=== PATIENT | female | born 1975 | race Caucasian/White ===

== ENCOUNTER 2016-08-17 15:53 | Inpatient (IN) | payer BC, OTHER, SELFPAY ==
[~2016-08-17] VITALS: Ht 165.1 cm; Wt 92.3 kg
[2016-08-17] MEDS ORDERED: VITA100066 PO (16:10)
[2016-08-17] MEDS ORDERED: IBUPROFEN 400 MG TAB PO ONE (16:30)
[2016-08-17] MEDS ORDERED: NS 1,000 ML IV ONE ×3 (16:30→19:45)
[2016-08-17 17:16] LABS: BASO % 0.1 % (0.0-1.0); EOS # 0.1 K/mm3 (0.0-0.50); EOS % 0.6 % (0.0-3.0); LARGE UNSTAINED CELL # 0.2 K/mm3 (0.0-0.4); LYMPH # 1.3 K/mm3 (1.5-4.5); LYMPH % 8.2 % (24.0-44.0); MEAN CORPUSCULAR HEMOGLOBIN 29.9 pg (27.0-33.0); MEAN CORPUSCULAR HGB CONC 33.1 g/dl (32.0-36.5); MEAN CORPUSCULAR VOLUME 90.3 fl (80.0-96.0); MONO # 0.9 K/mm3 (0.0-0.8); MONO % 5.8 % (0.0-5.0); NEUTROPHILS # 13.2 K/mm3 (1.8-7.7); NEUTROPHILS % 84.3 % (36.0-66.0); PLATELET COUNT, AUTOMATED 304 k/mm3 (150-450); RED CELL DISTRIBUTION WIDTH 12.6 % (11.5-14.5); WHITE BLOOD COUNT 15.7 K/mm3 (4.0-10.0)
[2016-08-17] MEDS ORDERED: ACETAMINOPHEN TAB 650MG DOSE (2X325MG) PO ONE (18:00)
[2016-08-17] MEDS ORDERED: cefTRIAXone SOD 1 GM in D5W MINI-BAG PLUS 50 ML IV ONE (18:15)
[2016-08-17] MEDS ORDERED: IBUPROFEN 800 MG TAB PO ONE (18:15)
[2016-08-17 18:24] LABS: CONTROL LINE HCG INT CTR LINE PRESENT
[2016-08-17 18:31] LABS: ALBUMIN 3.4 GM/DL (3.2-5.2); ALKALINE PHOSPHATASE 74 U/L (45-117); ALT/SGPT 14 U/L (12-78); ANION GAP 8 MEQ/L (8-16); AST/SGOT 11 U/L (15-37); BILIRUBIN,DIRECT 0.2 MG/DL (0.0-0.2); BILIRUBIN,TOTAL 0.7 MG/DL (0.2-1.0); BLOOD UREA NITROGEN 14 MG/DL (7-18); CALCIUM LEVEL 8.3 MG/DL (8.5-10.1); CARBON DIOXIDE LEVEL 24 MEQ/L (21-32); CHLORIDE LEVEL 107 MEQ/L (98-107); CREATININE FOR GFR 0.77 MG/DL (0.55-1.02); GLOMERULAR FILTRATION RATE > 60.0 (>60); GLUCOSE, FASTING 92 MG/DL (70-105); POTASSIUM SERUM 4.1 MEQ/L (3.5-5.1); SODIUM LEVEL 139 MEQ/L (136-145); TOTAL PROTEIN 6.5 GM/DL (6.4-8.2)
--- NOTE | 2016-08-17 19:10 | REPUSA ---
CLINICAL HISTORY: Abdominal pain, UTI. TECHNIQUE: CT abdomen and pelvis without contrast. COMPARISON: No pertinent prior studies are available at this time. CT ABDOMEN WITHOUT CONTRAST: Lung bases: No lung base infiltrate or effusion. Liver: No intrahepatic ductal dilation. Gallbladder: Normally distended. Pancreas: No pancreatic duct dilation. Bowel loops: Nondistended. Spleen: Normal size. Adrenals: Normal size. Right kidney: No stones or hydronephrosis. Left kidney: There is a large stone in the left renal hilum measuring 1.9 x 2.9 cm, which produces mi ld hydronephrosis. Aorta: Normal caliber. Peritoneum: No free air. Lumbar spine: Grade 1-2 anterolisthesis of L5 over S1 which appears to be due to severe degenerative disc and facet arthrosis, with early spondylolysis. CT PELVIS WITHOUT CONTRAST: Colon: Nondistended. Appendix: Normal appendix is seen. Bladder: Normally distended. Pelvic organs: there is a left fallopian tube clip in situ. There is a drop fallopian tube clip in th e posterior pelvis. No clip is seen at the expected location of the right fallopian tube.. Peritoneum: No fluid. Skeleton: No acute findings. IMPRESSION: 1. 2.6 cm left renal hilar stone which produces mild hydronephrosis. 2. Probable displacement of right fallopian tube sterilization clip. 3. 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
[2016-08-17] MEDS ORDERED: TYLE500T78 PO (19:58)
[2016-08-17] MEDS ORDERED: IBUPOTC PO (19:58)
[2016-08-17] MEDS ORDERED: MORPHINE 2 MG/ML 1ML SYRINGE IV PRN (20:45)
[2016-08-17] MEDS ORDERED: LevoFLOXacin IV 500 MG in APPROPRIATE DILUENT 1 EA IV SCH (20:45)
[2016-08-17] MEDS: LR 1,000 ML IV SCH (22:00)
--- NOTE | 2016-08-17 22:07 | HPE ---
DATE OF ADMISSION: 08/17/2016 PRIMARY CARE PROVIDER: Patient saw Dr. Jaxson Contreras a year ago. UROLOGIST: Meena Bravo MD CHIEF COMPLAINT: Chills, rigors, and back pain. HISTORY OF PRESENT ILLNESS: This is a 40-year-old female patient, generally healthy, with no significant past medical history, urinary tract infection (UTI) 3 months ago with hernandez sensitive Escherichia (E) coli, nephrolithiasis 10 years ago, presented last night with chills and rigors and back pain. Patient says that her urine is always cloudy. Denies any nausea or vomiting. Reported generalized weakness and feeling feverish. Temperature in the emergency room was 104.8. Denies any chest pain, pressure, or discomfort. At baseline healthy, able to walk a mile without any problems. Denies any nausea or vomiting. Reported some right-sided back and flank discomfort and abdominal right-sided discomfort as well, ranking pain as 5/10, no radiation. No exacerbating or relieving factor. CT scan was done showing 2.6 cm left renal hilar stone producing mild hydronephrosis. ALLERGIES: No known drug allergies. PAST MEDICAL HISTORY: 1. UTI. 2. Nephrolithiasis. 3. Hernandez sensitive E. coli. PAST SURGICAL HISTORY: section and tubal ligation. FAMILY HISTORY: Noncontributory. SOCIAL HISTORY: Patient does not smoke. Lives at home with family and drinks alcoholic beverages once a month. No illicit drug use. REVIEW OF SYSTEMS: 10-point review of systems negative except for those mentioned in history of present illness (HPI). HOME MEDICATIONS: - acetaminophen 1000 mg by mouth every 4 hours as needed - vitamin D 1000 units by mouth daily - ibuprofen 400 mg by mouth every 6 hours as needed PHYSICAL EXAMINATION: VITAL SIGNS: Maximum temperature (Tmax) 102.5 on documentation, heart rate ranging from 144-96, respirations 18, blood pressure 104/58, pulse oximetry 97% on room air. GENERAL: Patient alert and oriented times three, in no acute distress. HEENT: Normocephalic, atraumatic. PULMONARY: Bilaterally clear to auscultation. CARDIAC: Regular rate and rhythm, normal S1, S2. No murmurs detected. ABDOMEN: Soft, nontender, nondistended. Costovertebral angle (CVA), mild right-sided tenderness to palpation and manipulation. EXTREMITIES: No edema bilateral lower extremities. LABORATORY DATA: WBC 15.7, hemoglobin and hematocrit 13.8/41.8, platelets 304. Chemistry: Sodium 139, potassium 4.1, chloride 107, bicarbonate 24, BUN 14, creatinine 0.77. hCG negative. Urinalysis positive. ASSESSMENT AND PLAN: This is a 40-year-old female patient with underlying medical history of urinary tract infection (UTI) before and nephrolithiasis who presented with sepsis secondary to pyelonephritis and obstructive uropathy secondary to stone. 1. Sepsis secondary to pyelonephritis with left hilar stone producing mild hydronephrosis. No significant costovertebral angle (CVA) tenderness. Urology consulted. Patient is going for emergency surgery with urologist. Baseline MET greater than 4, generally healthy. Patient is currently medically optimized for emergency surgery. IV fluids, given 3 liters IV fluids, put on maintenance 200 mL of lactated Ringer's. Antibiotics, started on Rocephin. Patient had hernandez sensitive Escherichia (E) coli. Followup urology recommendations. Perioperative management as per urology. Outpatient followup with urology. Pain medication as prescribed. Nothing by mouth. 2. Deep venous thrombosis (DVT) prophylaxis. Heparin subcutaneous. DISPOSITION: Pending urology followup, procedures, clinical improvement.
[2016-08-17] MEDS ORDERED: CONRAY-60 60% 50ML VIAL (Q9961) As Ordered ONE (22:38)
[2016-08-17] MEDS ORDERED: LevoFLOXacin(LEVAQUIN)500 MG/100 ML BAG (J1956) As Ordered ONE (22:48)
[2016-08-17] MEDS ORDERED: MIDAZOLAM INJ 2 MG/2 ML VIAL (J2250) As Ordered ONE (23:09)
[2016-08-17] MEDS ORDERED: LIDOCAINE 2% INJ 100 MG/5 ML SDV (FOR ANES.) As Ordered ONE (23:09)
[2016-08-17] MEDS ORDERED: PROPOFOL 200 MG/20 ML VIAL As Ordered ONE ×2 (23:09→23:13)
[2016-08-17] MEDS ORDERED: fentaNYL 100 MCG/2 ML INJECTION (J3010) As Ordered ONE (23:09)
[2016-08-17] MEDS ORDERED: BELLADONNA ALKALOIDS/OPIUM SUPP As Ordered ONE (23:36)
[2016-08-17] MEDS ORDERED: BELLADONNA ALKALOIDS/OPIUM SUPP PR PRN (23:45)
[2016-08-17] MEDS ORDERED: ONDANSETRON 4MG/2ML VIAL (J2405) IV PRN (23:45)
[2016-08-17] MEDS ORDERED: PERCOCET 5MG/325MG TAB PO PRN (23:45)
[2016-08-17] MEDS ORDERED: LR 1,000 ML IV SCH (23:45)
[2016-08-18] VITALS (11 sets, daily range): BP systolic 91–138; BP diastolic 54–80
[2016-08-18] MEDS: LR 1,000 ML IV SCH ×3 (00:47→17:02)
[2016-08-18] MEDS: HEPARIN SOD (PORCINE) 5000 UNITS/ML VIAL SC SCH ×3 (00:58→20:39)
[2016-08-18] MEDS: SENOKOT S TAB PO SCH ×3 (00:58→20:39)
[2016-08-18] MEDS: PERCOCET 5MG/325MG TAB PO PRN ×3 (00:59→17:06)
[2016-08-18] MEDS: oxyBUTYnin 5 MG TAB PO PRN (01:04)
[2016-08-18] MEDS: ONDANSETRON 4MG/2ML VIAL (J2405) IV PRN (04:34)
[2016-08-18 06:57] LABS: WHITE BLOOD COUNT 13.2 K/mm3 (4.0-10.0)
[2016-08-18 06:59] LABS: ANION GAP 6 MEQ/L (8-16); BLOOD UREA NITROGEN 11 MG/DL (7-18); CALCIUM LEVEL 7.6 MG/DL (8.5-10.1); CARBON DIOXIDE LEVEL 25 MEQ/L (21-32); CHLORIDE LEVEL 111 MEQ/L (98-107); CREATININE FOR GFR 0.65 MG/DL (0.55-1.02); GLOMERULAR FILTRATION RATE > 60.0 (>60); GLUCOSE, FASTING 113 MG/DL (70-105); MAGNESIUM LEVEL 1.7 MG/DL (1.8-2.4); POTASSIUM SERUM 3.8 MEQ/L (3.5-5.1); SODIUM LEVEL 142 MEQ/L (136-145)
[2016-08-18 07:01] LABS: MEAN CORPUSCULAR HEMOGLOBIN 29.2 pg (27.0-33.0)
[2016-08-18 07:02] LABS: MEAN CORPUSCULAR HGB CONC 32.1 g/dl (32.0-36.5); RED CELL DISTRIBUTION WIDTH 12.8 % (11.5-14.5)
--- NOTE | 2016-08-18 08:49 | REP ---
REASON: Cough. FINDINGS: The technique utilized in obtaining the radiograph has magnified the cardiac silhouette and accentuated the interstitial markings. The superior mediastinal structures are midline. The cardiac silhouette is unremarkable in size, shape, and position. The diaphragmatic surfaces of the lungs are regular, and the costophrenic angles are clear. The pulmonary archuleta are clear. The imaged osseous structures are intact. IMPRESSION: There is no acute cardiopulmonary disease. Signed by Paul Mott DO 08/18/2016 08:51 A
--- NOTE | 2016-08-18 08:56 | REP ---
18 seconds of fluoroscopy time provided for left-sided retrograde pyelogram. Two images have been presented. There is opacification of the left renal collecting system and there is a double J stent catheter place, the proximal portion of which is in the renal pelvic region and the distal portion is not included on the radiograph. Signed by Paul Mott DO 08/18/2016 09:26 A
[2016-08-18] MEDS ORDERED: MAG SULF 1GM/100ML (MAG RUN) 1 GM in APPROPRIATE DILUENT 1 EA IV ONE (09:00)
[2016-08-18 10:20] LABS: RETIC HEMOGLOBIN CONTENT CHr 30.2 PG (24-36); RETICULOCYTE % ADVIA2120 1.2 % (0.5-1.5)
[2016-08-18 10:31] LABS: FERRITIN 86 NG/ML (8-252); PERCENT SATURATION 3.3 % (13.2-37.4); TOTAL IRON BINDING CAPACITY 213 UG/DL (250-450)
[2016-08-18] MEDS: PHENAZOPYRIDINE 100 MG TAB PO PRN ×2 (10:48→20:58)
--- NOTE | 2016-08-18 10:53 | IPNPDOC ---
Assessment/Plan Date Seen The patient was seen on 08/18/16. Patient Summary pt with 2.9cm left renal pelvic stone causing moderate hydronephrosis. admitted with Tmax of 103.8. UTI/Pylonephritis. she was taken to the OR and had stent placed. she defervesced nicely with 3 liters of fluid and the ceftriaxon. today she c/o of dysuria and is retaining 200cc. will put her on pyridium for the dysuria and low dose valium and flomax for the retention (possibly caused by pelvic floor dysfuntion) which may also be contributing to the pain with urination. She will need the UTI cleared first and then definitive treatment for the stone can be planned. she will likely need a percutanious nephrolithotomy. she is likley to be able to go home tomorrow and f/u with Dr Ott as outpt. Problems (1) Leukocytosis Status: Acute Response to Treatment: Improving Discussed With: Patient (2) Renal colic on left side Status: Acute Response to Treatment: Improving Discussed With: Patient (3) Hydronephrosis Status: Acute Response to Treatment: Improving Discussed With: Patient (4) Pyelonephritis Status: Acute Response to Treatment: Improving Discussed With: Patient Plan/VTE VTE Prophylaxis Ordered?: Yes Plan IVF: Continue Diet: Continue Current Activity: Encourage Ambulation Medications: Other Med: (add pyridium, valium and flomax) Diagnostics: Repeat Labs in AM Anticipated Discharge: Home Subjective Review oF Systems Chief Complaint The patient is a 40-year-old female admitted with a reason for visit of Hydronephrosis,Pyelonephritis. General: Reports: Normal Appetite, Denies: Fatigue, Malaise Constitutional: Denies: Chills, Fever, Malaise, Sweats, Weakness Pulmonary: Denies: Cough, Dyspnea Cardiovascular: Denies Chest Pain, Denies Palpitations Gastrointestinal: Reports: Abdominal Pain, Denies: Nausea, Vomiting Genitourinary: Reports: Dysuria, Frequency, Retention Musculoskeletal: Reports: Back Pain Objective Physical Examination General Exam: : Alert: Cooperative: Mild Distress Vital Signs/I&O Vital Signs Date Time Temp Pulse Resp B/P Pulse Ox O2 Delivery O2 Flow Rate FiO2 08/18/16 08:37 18 08/18/16 08:00 99.4 71 138/62 97 Room Air I&O- Last 24 Hours up to 6 AM 08/18/16 06:00 Intake Total 3640 ml Output Total 200 ml Balance 3440 ml Laboratory Data Labs 24H Laboratory Tests 2 08/17/16 16:52: White Blood Count 15.7H, Red Blood Count 4.62, Hemoglobin 13.8, Hematocrit 41.8 , Mean Corpuscular Volume 90.3, Mean Corpuscular Hemoglobin 29.9, Mean Corpuscular Hemoglobin Concent 33.1, Red Cell Distribution Width 12.6, Platelet Count 304, Neutrophils (%) (Auto) 84.3H, Lymphocytes (%) (Auto) 8.2L, Monocytes (%) (Auto) 5.8H, Eosinophils (%) (Auto) 0.6, Basophils (%) (Auto) 0.1, Neutrophils # (Auto) 13.2H, Lymphocytes # (Auto) 1.3L, Monocytes # (Auto) 0.9H, Eosinophils # (Auto) 0.1, Basophils # (Auto) 0.0, Lactic Acid Level 1.4, Large Unclassified Cells # 0.2, Large Unclassified Cells % 1.0, Urine Amorphous Sediment SMALLH, Urine Appearance CLOUDYH, Urine Color YELLOW, Urine pH 6.0, Urine Specific Campbell 1.017, Urine Protein 1+H, Urine Glucose (UA) NEGATIVE, Urine Ketones 1+H, Urine Urobilinogen 0.2, Urine Bilirubin NEGATIVE, Urine Leukocyte Esterase 3+H, Urine Bacteria (Auto) 1+H, Urine Blood 2+H, Urine Calcium Carbonate Cryst(Auto) , Urine Calcium Oxalate Cryst (Auto) , Urine Calcium Phosphate Sheila (Auto) , Urine Cellular Casts , Urine Cystine Crystals , Urine Granular Casts (Auto) , Urine Hyaline Casts (Auto) 0, Urine Leucine Crystals , Urine Mucus (Auto) SMALL, Urine Nitrite POSITIVE, Urine Oval Fat Bodies (Auto) , Urine RBC (Auto) 31H, Urine Renal Epithelial Cells , Urine Sperm (Auto) , Urine Squamous Epithelial Cells 0, Urine Transitional Epithelial Cells , Urine Trichomonas (Auto) , Urine Triple Phosphate Cryst (Auto) , Urine Tyrosine Crystals , Urine Uric Acid Crystals (Auto) , Urine WBC (Auto) TNTCH, Urine Waxy Casts (Auto) , Urine Yeast-Like Cells (Auto) 08/17/16 18:01: Aspartate Amino Transf (AST/SGOT) 11L, Alanine Aminotransferase (ALT/SGPT) 14, Alkaline Phosphatase 74, Total Bilirubin 0.7, Direct Bilirubin 0.2, Albumin 3.4 , Albumin/Globulin Ratio 1.10, Anion Gap 8, Calcium Level 8.3L, Glomerular Filtration Rate > 60.0, Human Chorionic Gonadotropin, Qual NEGATIVE, Total Protein 6.5 08/18/16 06:32: Anion Gap 6L, Calcium Level 7.6L, Glomerular Filtration Rate > 60.0, Blood Urea Nitrogen 11, Creatinine 0.65, Sodium Level 142, Potassium Level 3.8, Chloride Level 111H, Carbon Dioxide Level 25, Ferritin 86, Iron Level 7L, Magnesium Level 1.7L, Total Iron Binding Capacity 213L, Transferrin % Saturation 3.3L CBC/BMP Laboratory Tests 08/17/16 16:52 Red Blood Count 4.62, Mean Corpuscular Volume 90.3, Mean Corpuscular Hemoglobin 29.9, Mean Corpuscular Hemoglobin Concent 33.1, Red Cell Distribution Width 12.6 , Neutrophils (%) (Auto) 84.3 H, Lymphocytes (%) (Auto) 8.2 L, Monocytes (%) ( Auto) 5.8 H, Eosinophils (%) (Auto) 0.6, Basophils (%) (Auto) 0.1, Neutrophils # (Auto) 13.2 H, Lymphocytes # (Auto) 1.3 L, Monocytes # (Auto) 0.9 H, Eosinophils # (Auto) 0.1, Basophils # (Auto) 0.0 08/17/16 18:01 08/18/16 06:32 Red Blood Count 3.55 L, Mean Corpuscular Volume 91.0, Mean Corpuscular Hemoglobin 29.2, Mean Corpuscular Hemoglobin Concent 32.1, Red Cell Distribution Width 12.8, Calcium Level 7.6 L Microbiology Microbiology 08/17/16 Blood Culture, Received Pending 08/17/16 Blood Culture, Received Pending 08/17/16 Group A Streptococcus Screen (BOB), Received Pending 08/17/16 Influenza Virus Type A Antigen - Final, Complete 08/17/16 Influenza Virus Type B Antigen - Final, Complete 08/17/16 Urine Culture, Received Pending MARIA D ANN MD Aug 18, 2016 10:53
[2016-08-18] MEDS: ACETAMINOPHEN TAB 650MG DOSE (2X325MG) PO PRN ×2 (12:04→17:06)
[2016-08-18] MEDS ORDERED: diazePAM 2 MG TAB PO ONE (13:00)
[2016-08-18] MEDS ORDERED: TAMSULOSIN 0.4 MG CAP PO ONE (13:30)
--- NOTE | 2016-08-18 15:57 | ECGEPIP ---
Stationary ECG Study [facility] Test Date: 2016-08-17 Pat Name: YRIS KEITA Department: Room: [place] [address] Gender: F Bottom Polisher: : 1975 Requested By: BHARAT CHOI Order Number: [id number] Reading MD: Ez Jameson Measurements Intervals [place] Rate: 106 P: 51 WY: 162 QRS: 17 QRSD: 97 T: 18 QT: 339 QTc: 452 Interpretive Statements SINUS TACHYCARDIA Otherwise within normal limits. No prior ECG available for comparison at the time of interpretation. Electronically Signed On 08-18-2016 15:57:17 EDT by Ez Jameson
[2016-08-18] MEDS: TAMSULOSIN 0.4 MG CAP PO SCH (20:38)
[2016-08-18] MEDS: diazePAM 2 MG TAB PO SCH (20:39)
[2016-08-18] MEDS: cefTRIAXone SOD 2 GM in D5W MINI-BAG PLUS 50 ML IV SCH (20:39)
--- NOTE | 2016-08-18 22:10 | CR ---
DATE OF CONSULTATION: 08/17/2016 CHIEF COMPLAINT: 1. 2.9 cm left renal pelvic stone with hydronephrosis. 2. Sepsis with tachycardia and fever to 103.8. 3. Urinary tract infection (UTI) and pyelonephritis. 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 She did not take her temperature but knew she was hot and thought it was most likely because she had maybe some sun poisoning from her sunburn, but she had shaking chills to the point where it was painful. She then developed a headache and feeling bad all over and then bilateral back pain. She presented here to the emergency room where she was found to have infected urine, an elevated white count of 16, and then a CT urogram which showed an almost 3 cm stone at the ureteropelvic junction (UPJ) on the left causing hydronephrosis. Her maximum temperature (Tmax) was 103.8 and urology was asked to assist. PAST MEDICAL HISTORY: Significant for stones only which she has passed. PAST SURGICAL HISTORY: Tubal ligation and section. ALLERGIES: None. MEDICATIONS: - vitamin D SOCIAL HISTORY: She denies any tobacco or illicit drugs, but she does occasionally drink an alcoholic beverage. FAMILY HISTORY: Positive for stones in her father. REVIEW OF SYSTEMS: Positive for the fever, but unknown how high, chills and rigors, and headache, and back pain, but it tends to be bilateral. She denies any chest pain or shortness of breath, any hematochezia, hemoptysis, bloody emesis, headache, seizure, stroke, numbness or weakness in the extremities, nausea, vomiting, diarrhea or constipation. On examination, at the moment she appears stable. She is 100.7, pulse still in the 140s, blood pressure is stable. HEENT: Normocephalic, except for sunburned face. Neck supple without adenopathy. Cardiovascular: Tachycardic but no rubs, gallops, or murmurs. Lung archuleta are clear to auscultation. Abdomen: Soft, nontender, nondistended. There is no evidence of hepatosplenomegaly, palpable masses, or CVA tenderness. Extremities show no clubbing, cyanosis, or edema. LABORATORIES: White blood count is 15.7, hematocrit 41.8, her creatinine is 0.77. Her urinalysis is cloudy, 1+ protein, 1+ ketones, 2+ bloods, nitrite positive, 3+ leukocyte esterase, white blood cell count is too numerous to count, red blood cells 31, 1+ bacteria. Urine and blood culture is pending. IMAGING: CT scan showed a 2.9 cm left renal pelvic stone with hydronephrosis. ASSESSMENT: 2.9 cm obstructing left renal pelvic stone with pyelonephritis and sepsis. PLAN: She initially presented with a maximum temperature (Tmax) of 103.8, but since being given 3 liters of fluid and some antibiotics she is looking less toxic. Her temperature has come down. She notes she no longer has shaking chills and her vital signs are more stable, but we still need to take her to the operating room for cystoscopy and left stent placement. I have posted her and hopefully we will go in the next couple of hours. She will remain nothing by mouth until after the procedure. She understands that we need to treat the infection and un-obstruct her and then come back and take care of the stone definitively once the infection is cleared. She expressed understanding and wants to proceed.
[2016-08-19 00:25] VITALS: BP 109/67
[2016-08-19] MEDS: ACETAMINOPHEN TAB 650MG DOSE (2X325MG) PO PRN ×3 (00:25→16:20)
[2016-08-19] MEDS: PERCOCET 5MG/325MG TAB PO PRN ×3 (00:26→21:14)
[2016-08-19] MEDS: LR 1,000 ML IV SCH ×3 (01:04→14:25)
[2016-08-19 04:00] VITALS: BP 107/54
[2016-08-19] MEDS: PHENAZOPYRIDINE 100 MG TAB PO PRN ×2 (05:44→14:11)
[2016-08-19] MEDS: ONDANSETRON 4MG/2ML VIAL (J2405) IV PRN (06:45)
[2016-08-19 07:27] LABS: MEAN CORPUSCULAR HEMOGLOBIN 29.5 pg (27.0-33.0); MEAN CORPUSCULAR HGB CONC 32.4 g/dl (32.0-36.5); MEAN CORPUSCULAR VOLUME 91.3 fl (80.0-96.0); RED CELL DISTRIBUTION WIDTH 12.8 % (11.5-14.5); WHITE BLOOD COUNT 9.8 K/mm3 (4.0-10.0)
[2016-08-19 08:00] VITALS: BP 121/72
[2016-08-19 08:00] LABS: ANION GAP 5 MEQ/L (8-16); BLOOD UREA NITROGEN 7 MG/DL (7-18); CARBON DIOXIDE LEVEL 29 MEQ/L (21-32); CHLORIDE LEVEL 109 MEQ/L (98-107); CREATININE FOR GFR 0.64 MG/DL (0.55-1.02); GLOMERULAR FILTRATION RATE > 60.0 (>60); GLUCOSE, FASTING 90 MG/DL (70-105); POTASSIUM SERUM 3.7 MEQ/L (3.5-5.1); SODIUM LEVEL 143 MEQ/L (136-145)
[2016-08-19] MEDS: HEPARIN SOD (PORCINE) 5000 UNITS/ML VIAL SC SCH ×2 (08:17→21:15)
[2016-08-19] MEDS: SENOKOT S TAB PO SCH ×2 (08:17→21:14)
--- NOTE | 2016-08-19 09:33 | IPN ---
DATE: 08/18/2016 Ms. Barnes is complaining of dysuria this morning which feels like she is urinating glass. She says she is frightened to urinate. She has been using the suppository made available to her as well as the Ditropan. She has not felt a fever or chills. She still has some discomfort in her back on the left but feels much better in that regard since yesterday. Temperature is 99.4, pulse 71, respiratory rate 18, blood pressure 138/62, 97% on room air. Intake and output notable for a positive fluid balance of 3400. Weight is 87.9 kg with a body mass index of 32.3. She is awake, appropriately interactive, pleasantly conversant and a good historian. Mucous membranes are tacky. Neck is supple. Breathing is symmetrical, rested. I:E ratio is 1:3, somewhat diminished in both bases. No wheezes, rales, or rhonchi. No accessory muscle use. Speaking in complete sentences. Distal pulses 2+, capillary refill is less than two seconds. Heart is in a regular rate and rhythm, is not tachycardic. No lower extremity edema. No sacral edema. No left-sided costovertebral angle (CVA) tenderness. Abdomen is soft, doughy with normoactive bowel sounds. LABORATORY DATA: White cell count 13.2, hemoglobin 10.4, and platelets of 234. BUN 11, creatinine 0.65, and magnesium is 1.7. ASSESSMENT: This is a 40-year-old with left-sided pyelonephritis status post stent placement for obstructive uropathy on the left. PLAN: 1. Infectious disease. The patient was treated for sepsis secondary to pyelonephritis with left hilar stone producing a mild hydronephrosis. The patient is on broad-spectrum antibiotics. We will await culture results. We will plan to keep the patient in the hospital until she is afebrile for 48 hours. 2. Obstructive uropathy. The patient is having relatively extreme dysuria. I have discussed the case in general with the covering urologist who is suggesting apart from medicines previously ordered, the addition of Pyridium which has been added as well. 3. The patient's primary care provider is Dr. Contreras, and although she has not followed up the him closely, she will be able to followup with him as an outpatient. 4. The patient has anemia. We will check iron studies as well as reticulocyte count. 5. The patient has hypomagnesemia which will be repleted.
[2016-08-19 12:00] VITALS: BP 120/69
--- NOTE | 2016-08-19 12:20 | RO ---
DATE OF PROCEDURE: 08/17/2016 PREPROCEDURE DIAGNOSIS: 2.9 cm left renal pelvic stone with pyelonephritis and hydronephrosis and sepsis. POSTPROCEDURE DIAGNOSIS: 2.9 cm left renal pelvic stone with pyelonephritis and hydronephrosis and sepsis. PROCEDURE: Cystoscopy, left retrograde pyelography, left ureteral stent placement. SURGEON: Dr. Meena Bravo REGIONAL OPERATIONS MANAGER: ANESTHESIA: Monitored anesthesia care. ESTIMATED BLOOD LOSS: OPERATIVE PROCEDURE: Proper patient was identified and informed consent obtained. Risks and benefits explained. Patient was then taken to the operative suite and laid in supine position. Monitored anesthesia care was administered. Once adequate anesthesia was obtained, she was prepped and draped in the usual sterile fashion in the dorsal lithotomy position. We initiated the procedure by advancing a #22-Bulgarian cystoscope with obturator into the bladder and draining the bladder of all urine. We then inspected the bladder with 30-degree lens. There were no abnormalities noted with the bladder and both ureteral orifices were normal in position and orientation. We cannulated the left ureteral orifice with a cone-tip catheter. We could easily see the very large stone in the renal pelvis on weed burner film. We then injected contrast to opacify the ureter and the calices beyond the stone. Contrast effluxed up past the stone to fill up the calices. We then passed a subsequent wire into the ureter and up over the stone into the upper pole. We then passed a #5-Bulgarian JJ multi-lens stent over the wire. We confirmed its placement fluoroscopically in the upper pole of the kidney and under direct vision in the bladder. At this point, we drained the bladder and terminated the procedure. The patient was awakened, to the postoperative anesthesia care in stable condition. DISPOSITION: She will be admitted to the hospitalist service and monitored for sepsis and when she defervesces, we will arrange for discharge and outpatient followup for definitive treatment of stone once her urinary tract infection has cleared.
[2016-08-19] MEDS: oxyBUTYnin 5 MG TAB PO PRN (14:11)
[2016-08-19] MEDS ORDERED: SLF 3 ML SYR IV PRN (15:00)
[2016-08-19] MEDS: FERROUS SULFATE 325MG TAB PO SCH (15:15)
[2016-08-19 16:00] VITALS: BP 117/70
--- NOTE | 2016-08-19 20:49 | IPN ---
DATE: 08/19/2016 Ms. Barnes is feeling somewhat better today, although she had quite a high fever yesterday afternoon, feeling slightly better now. Tolerating diet. Maximal temperature 103.7, current temperature at my evaluation 99.7, pulse 87, respirations 18, blood pressure 121/72, 96% on room air. Intake and output notable for a positive fluid balance of 515. One bowel movement noted today. Body mass index 34.3. She is awake, appropriately interactive, pleasantly conversant. Skin is flushed red, which I previously noted but did not dictate. Breathing is symmetrical and rested. Heart is in a regular rate and rhythm. The abdomen is soft, doughy, nontender. There is no costovertebral angle (CVA) tenderness. White cell count 9.8, hemoglobin 9.8, trending downward, and platelets of 242. BUN 7, creatinine 0.64, magnesium 2. Iron 7, TIBC 213, ferritin 86, reticulocyte count is 1.2. Stool for occult blood is negative. Urine as previously noted, did show 2+ blood. ASSESSMENT: This is a 40-year-old with left-sided pyelonephritis status post stent placement for obstructive uropathy on the same side. PLAN: 1. Infectious disease. Patient was treated for sepsis secondary to pyelonephritis with left sided stone, producing a mild hydronephrosis. The patient is continued on broad-spectrum antibiotics. Urine cultures are thus far negative. My plan would be to keep the patient in hospital until she is afebrile for approximately 48 hours. 2. Obstructive uropathy. Patient's extreme dysuria has resolved. According to progress note from urologist yesterday, patient is to have followup with Dr. Zarate upon discharge. 3. The patient's primary care provider is Dr. Contreras. 4. Patient has anemia. Iron studies suggest a poor reticulocyte count. In response to anemia, her anemia, of course, at this point may be dilutional. It would look as though she may have early iron deficiency or anemia of chronic disease. We will start her on iron supplement, and it would seem as though we can likely discontinue the intravenous (IV) fluids. 5. I have encouraged the patient to walk in the hallway three times a day.
[2016-08-19] MEDS: TAMSULOSIN 0.4 MG CAP PO SCH (21:14)
[2016-08-19] MEDS: diazePAM 2 MG TAB PO SCH (21:14)
[2016-08-19] MEDS: cefTRIAXone SOD 2 GM in D5W MINI-BAG PLUS 50 ML IV SCH (21:15)
[2016-08-19] MEDS: SLF 3 ML SYR IV SCH (21:15)
[2016-08-19 22:32] VITALS: BP 119/76
[2016-08-20 04:00] VITALS: BP 118/71
[2016-08-20] MEDS: ONDANSETRON 4MG/2ML VIAL (J2405) IV PRN (04:19)
[2016-08-20] MEDS: ACETAMINOPHEN TAB 650MG DOSE (2X325MG) PO PRN (04:19)
[2016-08-20] MEDS: SLF 3 ML SYR IV SCH ×3 (04:20→20:56)
[2016-08-20 07:22] LABS: MEAN CORPUSCULAR HEMOGLOBIN 29.4 pg (27.0-33.0); MEAN CORPUSCULAR HGB CONC 32.4 g/dl (32.0-36.5); MEAN CORPUSCULAR VOLUME 90.8 fl (80.0-96.0); RED CELL DISTRIBUTION WIDTH 12.7 % (11.5-14.5); WHITE BLOOD COUNT 8.1 K/mm3 (4.0-10.0)
[2016-08-20 07:33] LABS: REASON FOR REVIEW COMPREHENSIVE REVIEW
[2016-08-20 07:43] LABS: ANION GAP 6 MEQ/L (8-16); BLOOD UREA NITROGEN 7 MG/DL (7-18); CALCIUM LEVEL 7.9 MG/DL (8.5-10.1); CARBON DIOXIDE LEVEL 28 MEQ/L (21-32); CHLORIDE LEVEL 110 MEQ/L (98-107); CREATININE FOR GFR 0.61 MG/DL (0.55-1.02); GLOMERULAR FILTRATION RATE > 60.0 (>60); GLUCOSE, FASTING 99 MG/DL (70-105); MAGNESIUM LEVEL 1.9 MG/DL (1.8-2.4); POTASSIUM SERUM 4.2 MEQ/L (3.5-5.1); SODIUM LEVEL 144 MEQ/L (136-145)
[2016-08-20] MEDS ORDERED: KETOROLAC 30 MG/ML VIAL (J1885) IV PRN (07:45)
[2016-08-20] MEDS ORDERED: ACETAMINOPHEN 500 MG TAB PO PRN (07:45)
[2016-08-20 08:00] VITALS: BP 126/81
[2016-08-20] MEDS: FERROUS SULFATE 325MG TAB PO SCH (08:50)
[2016-08-20] MEDS: SENOKOT S TAB PO SCH ×2 (08:50→20:55)
[2016-08-20] MEDS: HEPARIN SOD (PORCINE) 5000 UNITS/ML VIAL SC SCH ×2 (08:51→20:56)
[2016-08-20] MEDS: oxyBUTYnin 5 MG TAB PO PRN ×2 (11:22→20:55)
[2016-08-20] MEDS: PHENAZOPYRIDINE 100 MG TAB PO PRN ×2 (11:22→22:11)
--- NOTE | 2016-08-20 11:49 | IPNPDOC ---
Subjective Date Seen The patient was seen on 08/20/16. Subjective Chief Complaint/HPI The patient is a 40-year-old female admitted with a reason for visit of Hydronephrosis,Pyelonephritis. Events since last encounter had low grade fever last night , having severe headache since early this morning , no abdominal pain no nausea or vomiting. Objective Physical Examination General Exam: Positive: Alert, No Acute Distress Eye Exam: Positive: Conjunctiva & lids normal, EOMI, PERRLA, Negative: Sclera icteric ENT Exam: Positive: Atraumatic, Mucous membr. moist/pink, Pharynx Normal Neck Exam: Positive: Supple, Negative: JVD, thyromegaly Chest Exam: Positive: Clear to auscultation, Normal air movement Heart Exam: Positive: Normal S1, Normal S2, Rate Normal, Regular Rhythm, Negative: Murmurs, Rubs Telemetry: Positive: No significant arrhythmia Extremity Exam: Positive: Normal pulses, Negative: Clubbing, Cyanosis, Edema Skin Exam: Positive: Nl turgor and temperature, Negative: Breakdown, Rash Assessment /Plan Problems (1) Pyelonephritis Status: Acute Problem Text: on ceftriaxone (2) Renal colic on left side Status: Resolved Problem Text: left renal pelvis stone 2.6 cm s/p left ureteral stent on 08/19 (3) Hydronephrosis Status: Resolved Problem Text: has left ureteral stent. Plan/VTE VTE Prophylaxis Ordered?: Yes Plan IVF: Continue Diet: Continue Current Activity: Encourage Ambulation Medications: Other Med: (add pyridium, valium and flomax) Diagnostics: Repeat Labs in AM Anticipated Discharge: Home VS, I&O, 24H, Regino Vital Signs/I&O Vital Signs Date Time Temp Pulse Resp B/P Pulse Ox O2 Delivery O2 Flow Rate FiO2 08/20/16 08:00 98.2 75 16 126/81 96 Room Air I&O- Last 24 Hours up to 6 AM 08/20/16 05:59 Intake Total 4340 ml Output Total 3330 ml Balance 1010 ml Laboratory Data 24H LABS Laboratory Tests 2 08/20/16 06:58: Anion Gap 6L, Blood Urea Nitrogen 7, Creatinine 0.61, Sodium Level 144, Potassium Level 4.2, Chloride Level 110H, Carbon Dioxide Level 28, Calcium Level 7.9L, Differential Pathologist's Review COMPREHENSIVE REVIEW, Differential Slide Review Report, Glomerular Filtration Rate > 60.0, Magnesium Level 1.9, Peripheral Blood Smear Path Consult PERIPHERAL SMEAR CBC/BMP Laboratory Tests 08/20/16 06:58 Calcium Level 7.9 L, Red Blood Count 3.38 L, Mean Corpuscular Volume 90.8, Mean Corpuscular Hemoglobin 29.4, Mean Corpuscular Hemoglobin Concent 32.4, Red Cell Distribution Width 12.7 Microbiology Microbiology 08/17/16 Blood Culture - Preliminary, Resulted No Growth after 48 hours. All Specime... 08/17/16 Blood Culture - Preliminary, Resulted No Growth after 48 hours. All Specime... 08/18/16 Stool Occult Blood (BOB) - Final, Complete 08/17/16 Group A Streptococcus Screen (BOB) - Final, Complete 08/17/16 Influenza Virus Type A Antigen - Final, Complete 08/17/16 Influenza Virus Type B Antigen - Final, Complete 08/17/16 Urine Culture - Final, Complete Escherichia Coli JAZMYNE PRINCE MD Aug 20, 2016 11:49
[2016-08-20 16:00] VITALS: BP 138/83
[2016-08-20 20:00] VITALS: BP 124/66
[2016-08-20] MEDS: diazePAM 2 MG TAB PO SCH (20:55)
[2016-08-20] MEDS: TAMSULOSIN 0.4 MG CAP PO SCH (20:55)
[2016-08-20] MEDS: cefTRIAXone SOD 2 GM in D5W MINI-BAG PLUS 50 ML IV SCH (20:56)
[2016-08-21] VITALS: BP 106/54
[2016-08-21] MEDS: SLF 3 ML SYR IV SCH (06:00)
[2016-08-21 07:32] LABS: MEAN CORPUSCULAR HGB CONC 31.7 g/dl (32.0-36.5); MEAN CORPUSCULAR VOLUME 91.3 fl (80.0-96.0); RED CELL DISTRIBUTION WIDTH 12.7 % (11.5-14.5); WHITE BLOOD COUNT 6.6 K/mm3 (4.0-10.0)
[2016-08-21 07:51] LABS: ANION GAP 4 MEQ/L (8-16); BLOOD UREA NITROGEN 12 MG/DL (7-18); CALCIUM LEVEL 8.4 MG/DL (8.5-10.1); CARBON DIOXIDE LEVEL 31 MEQ/L (21-32); CHLORIDE LEVEL 107 MEQ/L (98-107); CREATININE FOR GFR 0.56 MG/DL (0.55-1.02); GLOMERULAR FILTRATION RATE > 60.0 (>60); GLUCOSE, FASTING 92 MG/DL (70-105); MAGNESIUM LEVEL 2.2 MG/DL (1.8-2.4); POTASSIUM SERUM 4.2 MEQ/L (3.5-5.1); SODIUM LEVEL 142 MEQ/L (136-145)
[2016-08-21 08:00] VITALS: BP 123/80
[2016-08-21] MEDS: FERROUS SULFATE 325MG TAB PO SCH (09:46)
[2016-08-21] MEDS: SENOKOT S TAB PO SCH (09:46)
[2016-08-21] MEDS: HEPARIN SOD (PORCINE) 5000 UNITS/ML VIAL SC SCH (09:48)
[2016-08-21] MEDS ORDERED: FLOM5CAP PO (10:11)
[2016-08-21] MEDS ORDERED: LEVO500T32 PO (10:11)
[2016-08-21] MEDS ORDERED: OXYB5TA PO (10:15)
[2016-08-21] MEDS ORDERED: PHEN1TAB80 PO (10:15)
[2016-08-21] MEDS ORDERED: FERR325T PO (10:15)
[2016-08-21] MEDS ORDERED: LevoFLOXacin 500 MG TABLET PO ONE (11:00)
--- NOTE | 2016-08-22 07:38 | DSES ---
DATE OF ADMISSION: 08/17/2016 DATE OF DISCHARGE: 08/21/2016 PRIMARY CARE PROVIDER: Dusty Contreras. DISCHARGE DIAGNOSES: Sepsis secondary to urinary tract infection. Pyelonephritis with obstructive uropathy. Renal stone. Chronic anemia. DISCHARGE MEDICATIONS: - levofloxacin 500 mg by mouth daily - oxybutynin chloride 5 mg by mouth three times daily as needed spasms - phenazopyridine 100 mg tablet, 200 mg by mouth every 8 hours as needed dysuria - tamsulosin 0.4 mg by mouth at bedtime - ferrous sulfate 325 mg by mouth daily - Tylenol 1000 mg by mouth every 4 hours as needed pain - cholecalciferol 1000 units by mouth daily - ibuprofen 400 mg by mouth every 6 hours as needed pain HOSPITAL COURSE: This is a 40-year-old female who presented to the hospital with fever, chills and back pain. Patient had a CT scan in the emergency room which was found to have a 2.6 cm left renal hilar stone causing obstructive uropathy and with mild hydronephrosis and pyelonephritis. Patient was treated with ceftriaxone. Urine culture came back non-sensitive E. Coli. Patient was seen by urology and underwent left ureteral stent placement on 08/17/2016 for obstructive uropathy. Patient did well during hospitalization with resolution of her fever and chills. Patient was subsequently switched over to oral levofloxacin and discharged home in stable condition in baseline functional status. PHYSICAL EXAMINATION: Vital signs: Temperature 98.2, pulse 72, respiratory rate 18, blood pressure 123/80, pulse oximetry 97% on room air. General: Patient awake, alert, oriented times three. Sitting up in bed in no acute distress. HEENT: Normocephalic, atraumatic. Moist mucous membranes. Anicteric eyes. Chest: Clear to auscultation. Cardiovascular: S1, S2. Regular. No rub, murmur or gallop. Abdomen: Soft, nontender, bowel sounds present. Extremities: No edema. LABORATORY DATA: WBC 6.6, hemoglobin 10.3, platelets 324. Sodium 142, potassium 4.2, chloride 107, bicarbonate 31, BUN 12, creatinine 0.5. Glucose 92, calcium 8.4, magnesium 2.2. CT abdomen and pelvis showed 2.6 cm left renal hilar stone producing mild hydronephrosis. Probable displacement of right fallopian tube sterilization clip. 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 Chest x-ray: No acute pulmonary disease. DISPOSITION: Patient was discharged home in stable condition. DISCHARGE INSTRUCTIONS: Patient to followup with primary care provider in 2 weeks. Patient to followup with Dr. Zarate from urology in 1 week. Regular diet. Activity as tolerated.
[2016-08-25] MEDS ORDERED: IBUPROFEN 800 MG TAB PO PRN (16:00)
== END 2016-08-21 13:20 | disposition home or self-care (01) | DRG 720 ==
LOC: M ED 16:35 → M SDC 20:16 → M ED INP 20:38 → M PED 08-18 00:20
PROVIDERS: ADMIT Urology; ATTEND Internal Medicine Nephrology
PROC: 0T9740Z Drainage of Left Ureter with Drainage Device, Percutaneous Endoscopic Approach (ICD-10-PCS; principal; 2016-08-17 22:52)
DX: A41.9 Sepsis, unspecified organism (principal); N13.30 Unspecified hydronephrosis; N10 Acute pyelonephritis; N20.0 Calculus of kidney; N13.8 Other obstructive and reflux uropathy; D64.9 Anemia, unspecified; Z79.899 Other long term (current) drug therapy; B96.29 Other Escherichia coli [E. coli] as the cause of diseases classified elsewhere

== ENCOUNTER → 2016-09-02 | Outpatient (REF) | payer SELFPAY ==
[~2016-09-02] MED LIST: FERR325T PO; FLOM5CAP PO; IBUPOTC PO; LEVO500T32 PO; OXYB5TA PO; PHEN1TAB80 PO; TYLE500T78 PO; VITA100066 PO
== END ==
LOC: M SMT 11:01
PROVIDERS: ATTEND Nurse Practitioner Family
DX: N39.0 Urinary tract infection, site not specified (principal)

== ENCOUNTER 2016-09-05 16:00 | Inpatient (IN) | payer SELFPAY ==
[~2016-09-05] VITALS: Ht 162.6 cm; Wt 88.0 kg
[~2016-09-05 16:00] MED LIST changes: -BIOT7500 PO; -LEVA500T PO; -PERC5TAB6 PO; -PERCOCET PO
[2016-09-05] MEDS ORDERED: BIOT7500 PO (16:20)
[2016-09-05] MEDS ORDERED: PERC5TAB6 PO (16:20)
[2016-09-10] MEDS ORDERED: CONRAY-60 60% 50ML VIAL (Q9961) As Ordered ONE (07:26)
[2016-09-10] MEDS ORDERED: LR 1,000 ML IV ONE (08:00)
[2016-09-10] MEDS ORDERED: ceFAZolin 2 GM/D5W 50 ML IV BAG (J0690) As Ordered ONE (08:24)
[2016-09-10] MEDS ORDERED: MIDAZOLAM INJ 2 MG/2 ML VIAL (J2250) As Ordered ONE (09:32)
[2016-09-10] MEDS ORDERED: fentaNYL 250 MCG/5 ML INJECTION (J3010) As Ordered ONE (09:32)
[2016-09-10] MEDS ORDERED: PHENYLephrine HCL 500 MCG/5 ML (100MCG/ML) SYRINGE (J2370) As Ordered ONE ×2 (09:32→10:10)
[2016-09-10] MEDS ORDERED: PROPOFOL 500 MG/50 ML VIAL As Ordered ONE (09:32)
[2016-09-10] MEDS ORDERED: ROCURONIUM BROMIDE 50 MG/5 ML VIAL As Ordered ONE (10:07)
[2016-09-10] MEDS ORDERED: ePHEDrine SULFATE 25 MG/5 ML(5MG/ML) SYRINGE As Ordered ONE (10:08)
[2016-09-10] MEDS ORDERED: dexameTHASONE 4 MG/ML 1ML VIAL (J1100) As Ordered ONE (10:08)
[2016-09-10] MEDS ORDERED: ONDANSETRON 4MG/2ML VIAL (J2405) As Ordered ONE (10:08)
[2016-09-10] MEDS ORDERED: METOCLOPRAMIDE INJ 10MG/2ML VIAL (J2765) As Ordered ONE (10:09)
[2016-09-10] MEDS ORDERED: DESFLURANE 240 ML INHALANT As Ordered ONE (10:17)
[2016-09-10] MEDS ORDERED: GLYCOPYRROLATE INJ 0.2 MG/ML 2 ML VIAL As Ordered ONE (10:41)
[2016-09-10] MEDS ORDERED: NEOSTIGMINE 1MG/ML 5 ML SYRINGE (J2710) As Ordered ONE (10:41)
[2016-09-10] MEDS ORDERED: HYDROmorphone HCL 2 MG/ML 1ML VIAL (J1170) As Ordered ONE (11:19)
[2016-09-10] MEDS ORDERED: ONDANSETRON 4MG/2ML VIAL (J2405) IV PRN ×2 (11:45)
[2016-09-10] MEDS ORDERED: METOCLOPRAMIDE INJ 10MG/2ML VIAL (J2765) IV PRN (11:45)
[2016-09-10] MEDS ORDERED: oxyCODONE 5MG TAB PO PRN (11:45)
[2016-09-10] MEDS ORDERED: LR 1,000 ML IV SCH (11:45)
[2016-09-10] MEDS ORDERED: fentaNYL 100 MCG/2 ML INJECTION (J3010) IV PRN (11:45)
[2016-09-10] MEDS ORDERED: PERCOCET 5MG/325MG TAB PO PRN (11:45)
[2016-09-10] MEDS: MEPERIDINE INJ 25 MG/ML VIAL (J2175) IV PRN ×2 (12:05→12:16)
--- NOTE | 2016-09-10 12:35 | REP ---
C-ARM VIEWS DURING RETROGRADE PYELOGRAM AND TUBE PLACEMENT: Large stone is seen in the left renal pelvis. Stone appears to have been removed on image #5. Subsequent images show placement of a ureteral stent with the proximal end coiled in the region of the renal pelvis and the distal end coiled in the region of the urinary bladder. Fluoroscopy time 3 minutes 32 seconds. Signed by Buck Rivera MD 09/10/2016 04:08 P
[2016-09-10 13:15] VITALS: BP 118/67
[2016-09-10 13:45] VITALS: BP 115/67
[2016-09-10] MEDS: KETOROLAC 30 MG/ML VIAL (J1885) IV SCH ×2 (14:36→19:45)
[2016-09-10] MEDS: LevoFLOXacin 500 MG TABLET PO SCH (14:36)
[2016-09-10] MEDS: ACETAMINOPHEN TAB 650MG DOSE (2X325MG) PO SCH ×2 (14:36→21:58)
[2016-09-10] MEDS: KCL 20MEQ IN D5/0.45NS 1000ML 1,000 ML IV SCH ×2 (14:37→21:59)
[2016-09-10 14:45] VITALS: BP 108/64
[2016-09-10 15:27] LABS: MEAN CORPUSCULAR HEMOGLOBIN 30.4 pg (27.0-33.0); RED CELL DISTRIBUTION WIDTH 13.4 % (11.5-14.5); WHITE BLOOD COUNT 6.7 K/mm3 (4.0-10.0)
[2016-09-10 15:45] VITALS: BP 114/63
[2016-09-10 15:46] LABS: ANION GAP 7 MEQ/L (8-16); BLOOD UREA NITROGEN 13 MG/DL (7-18); CARBON DIOXIDE LEVEL 26 MEQ/L (21-32); CHLORIDE LEVEL 106 MEQ/L (98-107); CREATININE FOR GFR 0.71 MG/DL (0.55-1.02); GLOMERULAR FILTRATION RATE > 60.0 (>60); GLUCOSE, FASTING 115 MG/DL (70-105); SODIUM LEVEL 139 MEQ/L (136-145)
[2016-09-10 17:45] VITALS: BP 129/82
[2016-09-10] MEDS ORDERED: PANTOPRAZOLE 40MG INJ (PROTONIX) (C9113) IV SCH (18:00)
[2016-09-10 22:00] VITALS: BP 111/67
--- NOTE | 2016-09-11 01:15 | RO ---
DATE OF PROCEDURE: 09/10/2016 PREPROCEDURE DIAGNOSIS: Left renal pelvic stone. POSTPROCEDURE DIAGNOSIS: Left renal pelvic stone. PROCEDURE: Left percutaneous nephrolithotripsy plus antegrade double J stent placement, plus cystoscopy, plus removal of old left double J stent, #6-[place]osotho [place] Cook. SURGEON: Dr. Yusuf Zarate PROJECT MANAGEMENT CONSULTANT: None. ANESTHESIA: General. FINDINGS: 3 cm left renal pelvic stone and left hydronephrosis. COMPLICATIONS: None. ESTIMATED BLOOD LOSS: N/A. HISTORY OF THE PRESENT ILLNESS: This is a 41-year-old female patient who has a very large 3 cm stone in the left renal pelvis. She got a nephroureteral stent placed by interventional radiology. She has a double J stent that has slid into the mid ureter also when actually placing the left nephroureteral stent and all the way into the bladder. For this reason, she has consented for a left percutaneous nephrolithotripsy plus antegrade double J stent and possible cystoscopy plus removal of left double J stent, old one. DESCRIPTION OF PROCEDURE: In a patient under general anesthesia in prone position, after prepping and draping the area of concern, which included the left flank, we actually visualized the stone with fluoroscopy. We then cut the nephroureteral stent and passed a guidewire through it up to the bladder. We could notice that the old double J stent was in the mid ureter and going into the bladder in 80% of the length. For this reason, we actually took the nephroureteral stent out and placed a double-lumen catheter after incising the skin for 2 cm in length. Through the double-lumen catheter, we placed a second guidewire down to the bladder and then took the double lumen catheter out. Through one of the guidewires, we placed a balloon dilator device to actually dilate the nephrostomy tract up to #30 [place]. We then placed an Amplatz sheath through the balloon into the renal pelvis. We took the balloon out and then set up the nephroscope and under videoendoscopic guidance, we visualized a big large stone in the renal pelvis. At that moment in time, with a CyberWand, we actually did a nephrolithotripsy of the stone with ultrasonic CyberWand. We sucked all the pieces out and cleared the stone. There were no stones left in the kidney. At that moment in time, we took the nephroscope out and placed a ureteroscope. We went down the ureter with the ureteroscope and pushed the old double J stent into the bladder completely. Once the ureter was cleared of any stones, we placed back the flexible ureteroscope and did upper pole, mid pole and lower pole; there were no stones left. At that moment in time, we placed a new double J stent, #6-Mosotho, [place] Cook in an antegrade fashion through the guidewire up to the bladder. Once the stent was in the bladder, we took the guidewire out. We could see the curl in the kidney and the curl in the bladder. We then proceeded to take the Amplatz sheath and place a Mabank Tip catheter, #18-Mosotho, into the renal pelvis, following the second guidewire. Once it was in good position, we actually did a nephrostogram. There was no extravasation, and we took the guidewire out. We then proceeded to actually suture ligate the Mabank Tip to the skin with #3-0 silks times two and then placed the nephrostomy tube to gravity. The double J stent was in good position with a curl in the kidney and a curl in the bladder. The old stent was curled inside the bladder. For this reason, once we actually placed 4 x 4's and ABD pads around the nephrostomy tube and the nephrostomy tube was secured with stitches to the skin and placed to gravity, we positioned the patient in supine position and frog-legged her. With a flexible cystoscope, we went into the bladder and visualized the old stent and then, with the endoscopic grasper, we pulled it out of the body of the patient. We then proceeded to actually replace the Guo catheter, #16-Mosotho, and inflated the balloon to 10 mL. There were no complications.
[2016-09-11 02:00] VITALS: BP 110/54
[2016-09-11] MEDS: KETOROLAC 30 MG/ML VIAL (J1885) IV SCH ×2 (04:41→12:31)
[2016-09-11] MEDS: LevoFLOXacin 500 MG TABLET PO SCH (06:26)
[2016-09-11] MEDS: ACETAMINOPHEN TAB 650MG DOSE (2X325MG) PO SCH ×2 (06:27→14:00)
[2016-09-11] MEDS: KCL 20MEQ IN D5/0.45NS 1000ML 1,000 ML IV SCH (06:49)
[2016-09-11 07:02] LABS: MEAN CORPUSCULAR HEMOGLOBIN 30.3 pg (27.0-33.0); MEAN CORPUSCULAR HGB CONC 32.3 g/dl (32.0-36.5); MEAN CORPUSCULAR VOLUME 93.6 fl (80.0-96.0); RED CELL DISTRIBUTION WIDTH 13.6 % (11.5-14.5); WHITE BLOOD COUNT 8.6 K/mm3 (4.0-10.0)
[2016-09-11 07:22] LABS: ANION GAP 6 MEQ/L (8-16); BLOOD UREA NITROGEN 9 MG/DL (7-18); CARBON DIOXIDE LEVEL 27 MEQ/L (21-32); CHLORIDE LEVEL 108 MEQ/L (98-107); CREATININE FOR GFR 0.75 MG/DL (0.55-1.02); GLOMERULAR FILTRATION RATE > 60.0 (>60); GLUCOSE, FASTING 124 MG/DL (70-105); SODIUM LEVEL 141 MEQ/L (136-145)
[2016-09-11 08:00] VITALS: BP 134/74
[2016-09-11] MEDS ORDERED: LEVA500T PO (11:08)
[2016-09-11] MEDS ORDERED: PERCOCET PO (11:08)
--- NOTE | 2016-09-11 11:36 | REP ---
REASON: Postop. Stent placement. COMPARISON: 08/17/2016. The lung bases are unchanged. There are no pleural or pericardial effusions. Limited evaluation of the solid intra-abdominal organs and gallbladder show no changes. Limited evaluation of the pancreas and adrenal glands and right kidney show no changes. Since the past examination, the large calcification seen in the left renal pelvis has been extracted and in its stead, there is a trans renal percutaneous ureteral stent double J catheter placement, the proximal portion of which is in the region of the left renal pelvis and the distal portion of which is in the urinary bladder. No abnormal calcifications are seen adjacent to this stent. There is no evidence of abnormal fluid in Gerota's fascia or Zuckerkandl's fascia. Normal Postop changes are seen in the left renal fossa. The right kidney is unremarkable and unchanged. There is no evidence of free fluid or free air in the abdomen. The bowel loops are essentially unchanged. There is no evidence of change in the intrapelvic contents other than the aforementioned double J stent catheter. There are bilateral adnexal mass probably ovarian cysts and extremely difficult to evaluate on this non-oral bowel preparatory contrast enhanced exam and non-intravenous contrast enhanced exam. IMPRESSION: 1. Left sided double J stent catheter placement with resultant postoperative findings as described above. 2. Suspect bilateral pelvic cystic masses but extremely difficult to evaluate on this markedly limited exam as described above. I would recommend pelvic ultrasonography at this time for further evaluation or intravenous and oral bowel preparatory contrast enhanced examination. Signed by Paul Mott DO 09/11/2016 02:15 P
[2016-09-11 12:00] VITALS: BP 126/70
--- NOTE | 2016-09-12 11:48 | DSES ---
DATE OF ADMISSION: 09/10/2016 DATE OF DISCHARGE: 09/11/2016 ADMISSION DIAGNOSIS: Left renal pelvic stone. DISCHARGE DIAGNOSIS: Left renal pelvic stone. PROCEDURE PERFORMED: Left percutaneous nephrolithotripsy plus antegrade double J stent placement, plus cystoscopy, plus removal of old left double J stent, #6-[place] Cook. ADMITTING SURGEON: Dr. Yusuf Zarate. DISCHARGE SURGEON: Dr. Yusuf Zarate. COMPLICATIONS: None. HISTORY OF PRESENT ILLNESS: This is a 41-year-old female patient who has a very large 3 cm stone in the left renal pelvis. She got a nephroureteral stent placed by interventional radiology. She has a double J stent that has slid into the mid ureter and into the bladder completely. For this reason, she has consented for a left percutaneous nephrolithotripsy plus antegrade double J stent placement, plus possible cystoscopy, plus removal of the left double J stent, old one. HOSPITAL COURSE: The patient did very well. Surgery was performed on 09/10/2016 without any uneventful events. The patient was passed through recovery and then to the floor. She was tolerating a regular diet, ambulating very well. Guo was draining clear urine. The nephrostomy tube was draining clear urine also on postoperative day number one. For this reason, the patient requested to go home since she was tolerating pain with oral pain medication. Her Guo catheter was removed and she was placed into saline lock. She had a CT scan done in the morning of 09/11/2016 that shows that she is stone free. There is only a microscopic nephrolithiasis in the kidney in the mid pole of no concern, but everything is completely cleared off. For this reason, we have taken out the nephrostomy tube and placed a urostomy bag. She will followup at [facility] with the following indications: Levaquin 500 mg one tablet by mouth for 10 days, Percocet for pain as needed. No heavy weightlifting above [address] on the narcotics. Followup in 1-2 weeks for removal of the left double J stent in the clinic. She will go with the urostomy bag in the backside where the nephrostomy tube was. The patient has agreed on this and she will be discharged home today.
== END 2016-09-11 14:53 | disposition home or self-care (01) | DRG 443 ==
LOC: M OR 09-10 08:21 → M MS5PR 09-10 13:15 → M PED 09-10 23:00
PROVIDERS: ADMIT Urology; ATTEND Urology
PROC: 0T9140Z Drainage of Left Kidney with Drainage Device, Percutaneous Endoscopic Approach (ICD-10-PCS; principal; 2016-09-10 14:20)
DX: N20.0 Calculus of kidney (principal)

== ENCOUNTER → 2016-09-05 | Outpatient (CLI) | payer SELFPAY ==
[~2016-09-05] MED LIST changes: +BIOT7500 PO; +LEVA500T PO; +PERC5TAB6 PO; +PERCOCET PO
[2016-09-05 15:18] LABS: MEAN CORPUSCULAR HEMOGLOBIN 29.8 pg (27.0-33.0); MEAN CORPUSCULAR HGB CONC 31.9 g/dl (32.0-36.5); MEAN CORPUSCULAR VOLUME 93.5 fl (80.0-96.0); RED CELL DISTRIBUTION WIDTH 13.3 % (11.5-14.5); WHITE BLOOD COUNT 8.7 K/mm3 (4.0-10.0)
[2016-09-05 15:26] LABS: INR 0.99
[2016-09-05 15:45] LABS: ALBUMIN 3.6 GM/DL (3.2-5.2); ALBUMIN/GLOBULIN RATIO 1.09 (1.00-1.93); ALKALINE PHOSPHATASE 72 U/L (45-117); ALT/SGPT 18 U/L (12-78); ANION GAP 5 MEQ/L (8-16); AST/SGOT 11 U/L (15-37); BILIRUBIN,TOTAL 0.5 MG/DL (0.2-1.0); BLOOD UREA NITROGEN 16 MG/DL (7-18); CALCIUM LEVEL 9.2 MG/DL (8.5-10.1); CARBON DIOXIDE LEVEL 32 MEQ/L (21-32); CHLORIDE LEVEL 105 MEQ/L (98-107); CREATININE FOR GFR 0.73 MG/DL (0.55-1.02); GLOMERULAR FILTRATION RATE > 60.0 (>60); GLUCOSE, FASTING 89 MG/DL (70-105); POTASSIUM SERUM 4.5 MEQ/L (3.5-5.1); SODIUM LEVEL 142 MEQ/L (136-145); TOTAL PROTEIN 6.9 GM/DL (6.4-8.2)
== END ==
LOC: M LAB 14:47
PROVIDERS: ATTEND Nurse Practitioner Family
DX: Z01.818 Encounter for other preprocedural examination (principal); N20.0 Calculus of kidney

== ENCOUNTER → 2016-09-09 | Day surgery (SDC) | payer SELFPAY ==
[~2016-09-09] MED LIST changes: +BIOT7500 PO; +ISOVUE-300 61% 50ML VIAL (Q9967) As Ordered ONE; +LEVA500T PO; +LIDOCAINE 2% MDV 20 ML VIAL As Ordered ONE; +MIDAZOLAM INJ 2 MG/2 ML VIAL (J2250) As Ordered ONE; +NORCO, ANEXSIA 5/325MG TABLET (HYDROcodone/ACETAMINOPHEN) PO PRN; +PERC5TAB6 PO; +PERCOCET PO; +cefTRIAXone SOD 1 GM VIAL (J0696) As Ordered ONE; +cefTRIAXone SOD 1 GM in D5W MINI-BAG PLUS 50 ML IV ONE; +fentaNYL 100 MCG/2 ML INJECTION (J3010) As Ordered ONE; +oxyBUTYnin 5 MG TAB PO ONE
--- NOTE | 2016-09-09 15:08 | REPKIM ---
CLINICAL HISTORY: Patient with a history of staghorn calculus and pain involving the left kidney and hydronephrosis, s/p retrograde double J stent placement on 08/17/16 presents for a nephroureteral catheter (stent) placement for preop percutaneous nephrolithotripsy urology procedure on the left. PROCEDURE PERFORMED: 1. Ultrasound left Kidney 2. Percutaneous antegrade Nephrostogram 3. Percutaneous Nephroureteral catheter (stent) placement INTERVENTIONALIST: David Gibson MD CONSENT: The risks, benefits and alternatives to the procedure were explained to the patient and informed written consent was obtained. SEDATION: Sedation and analgesia was provided by the Anesthesiology Dept. MEDICATIONS: Rocephin 1gm IV, Local Lidocaine CONTRAST: 15 mL Isovue 300 EBL: less than 10 mL FLUORO TIME: 7.3 minutes DEVICE USED: 8.5F 45-cm pigtail; Nephroureteral catheter (stent) Lot#[id number] PROCEDURE/FINDINGS: The patient was brought to the interventional radiology suite and placed in the prone position, left flank prepped and draped in the usual sterile fashion. Time out procedure was performed. Ultrasound of the kidney showed a large staghorn calculus involving the renal pelvis. Minimally dilated calyces noted. Using ultrasound and fluoroscopy guidance, a 21-gauge Accustick needle was advanced into the targeted mid to lower pole posterior calyx, after infiltration of the skin and deep tissues with local anesthetic. Contrast was injected and images were obtained. This showed free antegrade flow of contrast into the urinary bladder. The preexisting double J internal ureteral stent is in a satisfactory course and position. Using a hydrophilic guidewire, the catheter-wire combination was advanced around the larger renal pelvis stone into the proximal ureter then into the urinary bladder. The wire was then exchanged for a stiff wire. An 8.5-Nigerian 45-cm length nephroureteral catheter ( stent) was introduced over the guidewire after serial dilation of its tract. The guidewire was withdrawn and the distal end of the loop formed in the bladder. The nephroureteral catheter was then flushed and capped. The pre- existing double J stent has migrated during NU insertion with most of the catheter coiled in the bladder. The patient tolerated the procedure well with no immediate complications. The patient was transferred to the recovery room. This procedure was performed using ultrasound and fluoroscopy. Dr. Gibson was present. IMPRESSION: 1. Staghorn calculus involving the left kidney. Nephrostogram demonstrates free antegrade flow of contrast into the urinary bladder. 2. Successful 8.5F nephroureteral catheter (stent) placement via the posterior mid to lower pole calyx with its tip positioned in the urinary bladder as discussed above. The pre-existing double J internal ureteral stent has migrated down with most of the catheter coiled in the bladder. Findings discussed via phone with Dr. Zarate. This NU access will be used for subsequent percutaneous nephrolithotripsy urology procedure on 09/10/16. cc: ALDO Diaz MD [facility] CENTERLeesa
[2016-09-09 15:25] VITALS: BP 125/81
== END | disposition home or self-care (01) ==
LOC: M IRPRO 11:58 → M SDC 15:18
PROVIDERS: ATTEND Nurse Practitioner Family
DX: N13.2 Hydronephrosis with renal and ureteral calculous obstruction (principal)
CPT/HCPCS: 50395; 74485; C1729; C1769; C1887; C1894; J0696; J2250; J3010; Q9967

== ENCOUNTER → 2016-10-02 | Outpatient (REF) | payer SELFPAY ==
[~2016-10-02] MED LIST changes: -ISOVUE-300 61% 50ML VIAL (Q9967) As Ordered ONE; -LIDOCAINE 2% MDV 20 ML VIAL As Ordered ONE; -MIDAZOLAM INJ 2 MG/2 ML VIAL (J2250) As Ordered ONE; -NORCO, ANEXSIA 5/325MG TABLET (HYDROcodone/ACETAMINOPHEN) PO PRN; -cefTRIAXone SOD 1 GM VIAL (J0696) As Ordered ONE; -cefTRIAXone SOD 1 GM in D5W MINI-BAG PLUS 50 ML IV ONE; -fentaNYL 100 MCG/2 ML INJECTION (J3010) As Ordered ONE; -oxyBUTYnin 5 MG TAB PO ONE
== END ==
LOC: M LAB REF 13:09
PROVIDERS: ATTEND Obstetrics & Gynecology
DX: Z12.4 Encounter for screening for malignant neoplasm of cervix (principal)

== ENCOUNTER → 2016-10-17 | Outpatient (CLI) | payer SELFPAY ==
--- NOTE | 2016-10-18 05:41 | REP ---
Clinical: Abnormal vaginal bleeding. Technique: Transabdominal pelvic ultrasound followed by transvaginal examination for better evaluation of the endometrium and adnexa with color Doppler evaluation of the ovaries. Findings: Bladder is unremarkable and measures 8.7 x 5.3 x 8.1 cm . Normal retroverted uterus measures 8.0 x 5.5 x 6.8 cm . The endometrial complex measures 13.8 mm thickness. No discrete uterine or endometrial abnormalities are appreciated. Bilateral ovaries are normal in appearance and vascularity without evidence for torsion. Right ovary measures 3.7 x 2.5 x 2.8 cm ; R I = 0.48. Left ovary measures 4.4 x 2.7 x 4.3 cm ; R I = 0.45. No pelvic fluid or adnexal abnormality appreciated. Tubal ligation clips cannot be evaluated or definitively identified by pelvic ultrasound. Based on correlation with CT dated 09/11/2016, and appears to be at the right Filsh[place] clip has fallen into the left anny pelvis and no longer occluding the right fallopian tube. Impression: 1. Essentially normal pelvic ultrasound. 2. Based on correlation with recent CT appears to be that the right Filshie clip has fallen into the left anny pelvis and no longer occludes the right fallopian tube. Signed by Artie Beltran MD 10/18/2016 05:33 A
== END ==
LOC: M RAD 17:18
PROVIDERS: ATTEND Obstetrics & Gynecology
DX: N93.9 Abnormal uterine and vaginal bleeding, unspecified (principal)

== ENCOUNTER 2016-12-27 06:04 | Day surgery (SDC) | payer OTHER ==
[~2016-12-27] VITALS: Ht 165.1 cm; Wt 88.0 kg
[~2016-12-27 06:04] MED LIST changes: +FERR1TAB8 PO; -FERR325T PO; +LEVA1TAB2 PO; -LEVA500T PO; +LEVO500T3 PO; -LEVO500T32 PO; +LR 1,000 ML IV SCH; -OXYB5TA PO; +OXYB5TAB10 PO; +PERC5TAB12 PO; -PERC5TAB6 PO; +PHEN-500 PO; -PHEN1TAB80 PO
[2016-12-27] MEDS ORDERED: LR 1,000 ML IV ONE (06:15)
[2016-12-27 06:38] LABS: MEAN CORPUSCULAR HEMOGLOBIN 29.9 pg (27.0-33.0); MEAN CORPUSCULAR VOLUME 90.4 fl (80.0-96.0); RED CELL DISTRIBUTION WIDTH 12.6 % (11.5-14.5); WHITE BLOOD COUNT 5.8 K/mm3 (4.0-10.0)
[2016-12-27 06:55] LABS: CONTROL LINE HCG INT CTR LINE PRESENT
[2016-12-27] MEDS ORDERED: fentaNYL 100 MCG/2 ML INJECTION (J3010) As Ordered ONE ×2 (07:05→08:04)
[2016-12-27] MEDS ORDERED: MIDAZOLAM INJ 2 MG/2 ML VIAL (J2250) As Ordered ONE (07:05)
[2016-12-27] MEDS ORDERED: dexameTHASONE 4 MG/ML 1ML VIAL (J1100) As Ordered ONE (07:06)
[2016-12-27] MEDS ORDERED: LIDOCAINE 2% INJ 100 MG/5 ML SDV (FOR ANES.) As Ordered ONE (07:06)
[2016-12-27] MEDS ORDERED: KETOROLAC 60 MG/2 ML VIAL (J1885) As Ordered ONE (07:06)
[2016-12-27] MEDS ORDERED: PROPOFOL 200 MG/20 ML VIAL As Ordered ONE (07:06)
[2016-12-27] MEDS ORDERED: ONDANSETRON 4MG/2ML VIAL (J2405) As Ordered ONE (07:06)
[2016-12-27] MEDS ORDERED: ROCURONIUM BROMIDE 50 MG/5 ML VIAL/SYRINGE As Ordered ONE (07:06)
[2016-12-27] MEDS ORDERED: SILVER NITRATE APPLICATOR As Ordered ONE (07:17)
[2016-12-27] MEDS ORDERED: BUPIVACAINE HCL 0.25% 10 ML VIAL As Ordered ONE (07:17)
[2016-12-27] MEDS ORDERED: ePHEDrine SULFATE 25 MG/5 ML(5MG/ML) SYRINGE As Ordered ONE (08:46)
[2016-12-27] MEDS ORDERED: GLYCOPYRROLATE INJ 0.2 MG/ML 2 ML VIAL As Ordered ONE (09:08)
[2016-12-27] MEDS ORDERED: NEOSTIGMINE 1MG/ML 5 ML SYRINGE (J2710) As Ordered ONE (09:08)
[2016-12-27] MEDS ORDERED: IBUP-1022 PO (09:22)
[2016-12-27] MEDS ORDERED: TRAM50TA2 PO (09:23)
[2016-12-27] MEDS ORDERED: COLA100C5 PO (09:24)
[2016-12-27] MEDS ORDERED: ONDANSETRON 4MG/2ML VIAL (J2405) IV PRN (09:30)
[2016-12-27] MEDS ORDERED: HYDROmorphone HCL 1 MG/ML SYRINGE (J1170) IV PRN (09:30)
[2016-12-27] MEDS ORDERED: PERCOCET 5MG/325MG TAB PO PRN (09:30)
[2016-12-27] MEDS ORDERED: fentaNYL 100 MCG/2 ML INJECTION (J3010) IV PRN (09:30)
[2016-12-27] MEDS ORDERED: LR 1,000 ML IV SCH ×2 (09:30)
[2016-12-27] MEDS ORDERED: METOCLOPRAMIDE INJ 10MG/2ML VIAL (J2765) IV ONE (12:30)
[2016-12-27 12:40] VITALS: BP 108/61
--- NOTE | 2016-12-28 12:06 | RO ---
DATE OF PROCEDURE: 12/27/2016 PREOPERATIVE DIAGNOSIS: Chronic pelvic pain. POSTPROCEDURE DIAGNOSIS: Chronic pelvic pain. PROCEDURE PERFORMED: Laparoscopic removal of Filshie clips and bilateral partial salpingectomy. SURGEON: Josue Rico DO PIPE RACKER: None. ANESTHESIA: General endotracheal. SPECIMENS TO PATHOLOGY: Two Filshie clips and bilateral partial fallopian tubes. ESTIMATED BLOOD LOSS: 10 mL. FLUIDS REPLACED: 1500 mL lactated Ringer's. DRAINS: Guo catheter 300 mL urine output. COMPLICATIONS: None. ANTIBIOTIC: None indicated. INTRAOPERATIVE FINDINGS: The right Filshie clip was found in the posterior cul-de-sac. The left Filshie clip was over the left proximal fallopian tube and mildly adherent to peritoneum. The uterus was retroverted, retroflexed, about 10 weeks in size. There were anterior adhesions attaching the bladder to the lower uterine segment and cervix, otherwise no significant intraperitoneal adhesive disease. INDICATION: The patient is a 41-year-old with a longstanding history of chronic pelvic pain. The chronic pelvic pain commenced immediately after she had the Filshie clips placed for sterilization. She continued to have chronic pelvic pain since that surgery and she has thus requested removal of the Filshie clips. She also requested bilateral partial salpingectomy/fimbriectomy for ovarian cancer risk reduction. The patient was counseled that her chronic pelvic pain has a chance of persisting despite the surgery. DESCRIPTION OF PROCEDURE: The patient was counseled and consented on the risks, benefits, indications and alternatives to the procedure. Informed consent was obtained. She was taken to operating room with an IV running. She was placed on operating table in dorsal supine position where general anesthesia was administered and airway secured without any difficulty. She was placed in low lithotomy position. She was prepared and draped in normal sterile fashion. A time-out was performed per protocol. Guo catheter was placed under sterile conditions. A sterile speculum placed into the vagina with good visualization of the cervix. A single-tooth tenaculum was placed over the anterior lip of the cervix and then a mydalaka uterine manipulator was placed in typical fashion. The sterile speculum was removed. Attention was turned to the abdomen after a glove switch was performed. A 5 mm umbilical incision was placed with 11 blade after injection of 0.25% Marcaine. Through this incision, a Veress needle was placed into the intraperitoneal cavity. Intraperitoneal placement was confirmed with ease of flow of normal saline, negative return on aspiration and a positive drop test. Opening pressure was 4 mmHg, and abdomen was insufflated with 2 liters of gas. Veress needle was removed. The size 5 mm XL laparoscopic trocar was placed under direct visualization without any difficulty and with no incidental bleeding or injury noted. The patient was then placed in steep Trendelenburg. Two additional 5 mm port sites were placed on the lower left abdomen through 5 mm incisions. The 5 mm XL laparoscopic trocars were placed under direct visualization. The pelvic anatomy was manipulated, the findings noted above. Attention was first turned to removing the left Filshie clip. The left Filshie clip was grasped with an atraumatic grasper and slight tension was placed, thus detaching it from its peritoneal attachments. It was easily removed through an 8 mm cannula. The 8 mm cannula was needed to replace one of the left 4 mm cannula prior to removal of Filshie clip to accommodate the Filshie clip. Attention was then turned to the posterior cul-de-sac. The posterior cul-de-sac Filshie clip was grasped with [place] graspers and detached with just placing tension over the clip. With blunt dissection, the clip was detached from its peritoneal attachments. The clip was removed through the 8 mm cannula, thus removing both Filshie clips. Attention was then turned to the left fallopian tube. The left fallopian tube was grasped at the fimbriated end and elevated. The underlying mesosalpinx and broad ligament were sequentially clamped, cut, coagulated with a 5 mm LigaSure device. The left fallopian tube was then amputated and brought through the 8 mm cannula. Attention was then turned to the right fallopian tube. The right fallopian tube was grasped at the fimbriated end and elevated. The underlying mesosalpinx and broad ligament was sequentially clamped, coagulated and transected with the 5 mm LigaSure device. The amputated right fallopian tube was brought through the 8 mm cannula. Excellent hemostasis was noted on both right and left surgical sites. The gas was released and after release of gas hemostasis was noted. The cannulas were removed. Sponge, lap, needle and instrument counts were correct. The skin incisions were closed with #4-0 Monocryl in subcuticular fashion and reinforced with Dermabond. Attention was then turned back to the pelvis. The Guo catheter was removed. Sterile speculum was placed. The tenaculum and the Hulka uterine manipulator were removed. The posterior tenaculum site of the Hulka uterine manipulator was bleeding significantly so a single interrupted stitch using #3-0 Vicryl was placed along this area. Excellent hemostasis was achieved. The remainder of the tenaculum sites were cauterized with silver nitrate and excellent hemostasis was noted. All instruments were removed from the vagina. Sponge, lap, needle and instrument counts were again correct. The patient tolerated the entire procedure well. She was transferred to the postanesthesia care unit in good stable condition.
== END 2016-12-27 12:50 | disposition home or self-care (01) ==
LOC: M SDC 06:04
PROVIDERS: ATTEND Obstetrics & Gynecology
DX: R10.2 Pelvic and perineal pain (principal); M54.5 Low back pain; F41.9 Anxiety disorder, unspecified; G47.00 Insomnia, unspecified

== ENCOUNTER → 2018-06-10 | Outpatient (REF) | payer BC, OTHER ==
[~2018-06-10] MED LIST changes: +COLA100C5 PO; +FLOM0.4C39 PO; -FLOM5CAP PO; +IBUP-1022 PO; -LR 1,000 ML IV SCH; +TRAM50TA2 PO
[2018-06-10 19:04] LABS: AMORPHOUS SEDIMENT MODERATE (NEGATIVE); APPEARANCE, URINE TURBID (CLEAR); BACTERIA, URINE AUTO 2+ (NEGATIVE); BILIRUBIN, URINE AUTO NEGATIVE (NEGATIVE); BLOOD, URINE BLOOD NEGATIVE (NEGATIVE); COLOR, URINE YELLOW (YELLOW); GLUCOSE, URINE (UA) AUTO NEGATIVE (NEGATIVE); KETONE, URINE AUTO NEGATIVE (NEGATIVE); LEUKOCYTE ESTERASE, URINE AUTO TRACE (NEGATIVE); MUCUS, URINE SMALL (NEGATIVE); NITRITE, URINE AUTO POSITIVE (NEGATIVE); PROTEIN, URINE AUTO NEGATIVE (NEGATIVE); RBC, URINE AUTO 0 /HPF (0-3); SPECIFIC GRAVITY URINE AUTO 1.027 (1.002-1.035); SQUAMOUS EPITHELIAL CELL UR AU 0 /HPF (0-6); UROBILINOGEN, URINE AUTO 0.2 mg/dL (0.0-2.0); WBC, URINE AUTO 16 /HPF (0-3)
== END ==
LOC: M SMT 17:10
PROVIDERS: ATTEND Nurse Practitioner Women's Health
DX: Z87.442 Personal history of urinary calculi (principal)

== ENCOUNTER → 2018-06-17 | Outpatient (CLI) | payer BC ==
--- NOTE | 2018-06-17 17:51 | REP ---
CT of the abdomen pelvis without IV and oral contrast: Comparison is 09/11/2016. The visualized lung archuleta are unremarkable. The unenhanced hepatic parenchyma, gallbladder, pancreas and spleen are unremarkable. The adrenals remarkable. There are no renal calculi. There is no hydronephrosis. No perinephric stranding. The kidneys appear normal size. The abdominal aorta is unremarkable. The bowel and mesentery are unremarkable. Pelvis: The uterus, adnexa and urinary bladder are unremarkable. There are phleboliths. The pelvic bowel loops are unremarkable. There is no ascites or adenopathy. Impression: There are no renal calculi. There is no hydronephrosis. Otherwise, negative CT of the abdomen and pelvis without IV and oral contrast. Electronically Signed by Buck Mcgee MD 06/17/2018 05:43 P
== END ==
LOC: M RAD 15:42
PROVIDERS: ATTEND Nurse Practitioner Women's Health
DX: N39.0 Urinary tract infection, site not specified (principal); Z87.442 Personal history of urinary calculi

== ENCOUNTER → 2018-06-24 | Outpatient (REF) | payer BC ==
[2018-06-24 19:00] LABS: APPEARANCE, URINE HAZY (CLEAR); BACTERIA, URINE AUTO 1+ (NEGATIVE); BILIRUBIN, URINE AUTO NEGATIVE (NEGATIVE); BLOOD, URINE BLOOD NEGATIVE (NEGATIVE); CALCIUM OXALATE CRYSTALS LARGE; COLOR, URINE YELLOW (YELLOW); GLUCOSE, URINE (UA) AUTO NEGATIVE (NEGATIVE); KETONE, URINE AUTO NEGATIVE (NEGATIVE); LEUKOCYTE ESTERASE, URINE AUTO NEGATIVE (NEGATIVE); MUCUS, URINE SMALL (NEGATIVE); NITRITE, URINE AUTO NEGATIVE (NEGATIVE); PROTEIN, URINE AUTO NEGATIVE (NEGATIVE); RBC, URINE AUTO 1 /HPF (0-3); SPECIFIC GRAVITY URINE AUTO 1.024 (1.002-1.035); SQUAMOUS EPITHELIAL CELL UR AU 1 /HPF (0-6); UROBILINOGEN, URINE AUTO 0.2 mg/dL (0.0-2.0); WBC, URINE AUTO 2 /HPF (0-3)
== END ==
LOC: M SMT 17:07
PROVIDERS: ATTEND Nurse Practitioner Women's Health
DX: N39.0 Urinary tract infection, site not specified (principal)

== ENCOUNTER → 2018-07-04 | Outpatient (CLI) | payer BC ==
[2018-07-04 19:19] LABS: BASO % 0.6 % (0.0-1.0); EOS # 0.2 10^3/uL (0.0-0.50); EOS % 2.4 % (0.0-3.0); HEMATOCRIT 39.1 % (36.0-47.0); HEMOGLOBIN 12.3 g/dl (12.0-15.5); LYMPH # 2.8 10^3/uL (1.5-4.5); LYMPH % 38.5 % (24.0-44.0); MEAN CORPUSCULAR HEMOGLOBIN 30.3 pg (27.0-33.0); MEAN CORPUSCULAR HGB CONC 31.5 g/dl (32.0-36.5); MEAN CORPUSCULAR VOLUME 96.3 fl (80.0-96.0); MONO # 0.4 10^3/uL (0.0-0.8); NEUTROPHILS # 3.8 10^3/uL (1.8-7.7); NEUTROPHILS % 52.4 % (36.0-66.0); PLATELET COUNT, AUTOMATED 330 10^3/uL (150-450); RED BLOOD COUNT 4.06 10^6/uL (4.00-5.40); WHITE BLOOD COUNT 7.2 10^3/uL (4.0-10.0)
[2018-07-04 19:39] LABS: BLOOD UREA NITROGEN 22 MG/DL (7-18); CALCIUM LEVEL 8.5 MG/DL (8.5-10.1); CARBON DIOXIDE LEVEL 28 MEQ/L (21-32); CHLORIDE LEVEL 107 MEQ/L (98-107); CHOLESTEROL LEVEL 158 MG/DL (<200); CREATININE FOR GFR 0.85 MG/DL (0.55-1.30); GLOMERULAR FILTRATION RATE > 60.0 (>58); GLUCOSE, FASTING 76 MG/DL (70-100); HDL CHOLESTEROL 81 MG/DL (>40); LDL CHOLESTEROL 71 MG/DL (<100); NON-HDL-C 77 MG/DL; POTASSIUM SERUM 4.4 MEQ/L (3.5-5.1); SODIUM LEVEL 141 MEQ/L (136-145); TRIGLYCERIDES LEVEL 31 MG/DL (<150)
== END ==
LOC: M LRY 09:37
PROVIDERS: ATTEND Family Medicine
DX: Z00.00 Encounter for general adult medical examination without abnormal findings (principal); R53.83 Other fatigue; F32.0 Major depressive disorder, single episode, mild; E66.9 Obesity, unspecified

== ENCOUNTER → 2018-07-17 | Outpatient (CLI) | payer BC ==
[2018-07-17 20:33] LABS: ALT/SGPT 20 U/L (12-78); BILIRUBIN,TOTAL 0.4 MG/DL (0.2-1.0); BLOOD UREA NITROGEN 16 MG/DL (7-18); CARBON DIOXIDE LEVEL 31 MEQ/L (21-32); CHLORIDE LEVEL 105 MEQ/L (98-107); CREATININE FOR GFR 0.79 MG/DL (0.55-1.30); GLOMERULAR FILTRATION RATE > 60.0 (>58); GLUCOSE, FASTING 71 MG/DL (70-100); POTASSIUM SERUM 4.7 MEQ/L (3.5-5.1); RHEUMATOID FACTOR QUANT < 10.0 IU/ML (<15.0); SODIUM LEVEL 140 MEQ/L (136-145); TOTAL PROTEIN 7.4 GM/DL (6.4-8.2)
[2018-07-17 20:36] LABS: VITAMIN B12 LEVEL 767 PG/ML
[2018-07-17 20:37] LABS: FOLATE 19.2 NG/ML
[2018-07-17 21:11] LABS: BASO # 0.1 10^3/uL (0.0-0.2); EOS # 0.2 10^3/uL (0.0-0.50); EOS % 1.9 % (0.0-3.0); HEMATOCRIT 38.7 % (36.0-47.0); HEMOGLOBIN 12.1 g/dl (12.0-15.5); LYMPH # 2.8 10^3/uL (1.5-4.5); LYMPH % 35.7 % (24.0-44.0); MEAN CORPUSCULAR HEMOGLOBIN 29.4 pg (27.0-33.0); MEAN CORPUSCULAR HGB CONC 31.3 g/dl (32.0-36.5); MEAN CORPUSCULAR VOLUME 94.2 fl (80.0-96.0); MONO # 0.6 10^3/uL (0.0-0.8); MONO % 8.2 % (0.0-5.0); NEUTROPHILS # 4.1 10^3/uL (1.8-7.7); NEUTROPHILS % 52.9 % (36.0-66.0); PLATELET COUNT, AUTOMATED 409 10^3/uL (150-450); RED BLOOD COUNT 4.11 10^6/uL (4.00-5.40); WHITE BLOOD COUNT 7.7 10^3/uL (4.0-10.0)
[2018-07-17 21:31] LABS: ERYTHROCYTE SEDIMENTATION RATE 9 mm/hr (0-20)
[2018-07-21 15:28] LABS: ALBUMIN % 58.1 % (55.8-66.1); ALPHA-1-GLOBULIN % 4.4 % (2.9-4.9); ALPHA-1-GLOBULINS 0.33 GM/DL (0.17-0.41); ALPHA-2-GLOBULINS 0.75 GM/DL (0.42-0.99); ALPHA-2-GLOBULINS % 10.1 % (7.1-11.8); BETA-1-GLOBULINS % 6.8 % (4.7-7.2); BETA-2-GLOBULINS 0.41 GM/DL (0.19-0.55); BETA-2-GLOBULINS % 5.5 % (3.2-6.5); GAMMA GLOBULIN % 15.1 % (11.1-18.8); GAMMA GLOBULINS 1.12 GM/DL (0.65-1.58)
[2018-07-22 08:27] LABS: ANTI DOUBLE STRAND-DNA AB <1 IU/mL (0-9); ANTINUCLEAR ANTIBODIES DIRECT Negative (Negative); COPPER PLASMA 122 ug/dL (72-166); LEAD BLOOD ADULT <1 ug/dL (0-4); MERCURY LEVEL None Detected ug/L (0.0-14.9); SJOGREN'S ANTI SS-A <0.2 AI (0.0-0.9); SJOGREN'S ANTI SS-B <0.2 AI (0.0-0.9)
[2018-07-22 15:14] LABS: CERULOPLASMIN 25.5 mg/dL (19.0-39.0); VITAMIN B1 LEVEL WHOLE BLOOD 120.1 nmol/L (66.5-200.0); VITAMIN B6,PYRIDOXAL PHOSPHATE 21.4 ug/L (2.0-32.8)
[2018-07-23 00:08] LABS: VITAMIN E(ALPHA TOCOPHEROL) 8.3 mg/L (7.0-25.1); VITAMIN E(GAMMA TOCOPHEROL) 1.7 mg/L (0.5-5.5)
== END ==
LOC: M LRY 17:16
PROVIDERS: ATTEND Psychiatry & Neurology Neurology
DX: R41.841 Cognitive communication deficit (principal)

== ENCOUNTER → 2019-06-24 | Outpatient (REF) | payer BC ==
[2019-06-24 17:49] LABS: INFLUENZA A AMPLIFICATION NEGATIVE (NEGATIVE); INFLUENZA B AMPLIFICATION POSITIVE (NEGATIVE)
== END ==
LOC: M LAB REF 16:34
PROVIDERS: ATTEND Registered Nurse
DX: R50.9 Fever, unspecified (principal)

== ENCOUNTER 2020-01-17 13:12 | Emergency (ER) | payer BC ==
[~2020-01-17] VITALS: Ht 165.1 cm; Wt 81.4 kg
[2020-01-17] MEDS ORDERED: METF-838 (13:24)
[2020-01-17] MEDS ORDERED: tylenol 1 gm (13:24)
[2020-01-17] MEDS ORDERED: VYVA60CA (13:24)
[2020-01-17] MEDS ORDERED: BUPR300T92 (13:24)
[2020-01-17] MEDS ORDERED: BUPR-69 (13:24)
[2020-01-17] MEDS ORDERED: NS 1,000 ML IV ONE (15:15)
[2020-01-17] MEDS ORDERED: ONDANSETRON 4MG/2ML VIAL IV ONE (15:15)
[2020-01-17] MEDS ORDERED: cefTRIAXone SOD 1 GM in D5W MINI-BAG PLUS 50 ML IV ONE (16:00)
[2020-01-17 16:39] LABS: BASO # 0.1 10^3/uL (0.0-0.2); BASO % 0.7 % (0.0-1.0); EOS # 0.1 10^3/uL (0.0-0.5); EOS % 1.2 % (0.0-3.0); HEMATOCRIT 38.4 % (36.0-47.0); HEMOGLOBIN 12.2 g/dl (12.0-15.5); LYMPH # 2.6 10^3/uL (1.5-5.0); LYMPH % 28.9 % (24.0-44.0); MEAN CORPUSCULAR HEMOGLOBIN 30.6 pg (27.0-33.0); MEAN CORPUSCULAR HGB CONC 31.8 g/dl (32.0-36.5); MEAN CORPUSCULAR VOLUME 96.2 fl (80.0-96.0); MONO # 0.7 10^3/uL (0.0-0.8); MONO % 7.5 % (0.0-5.0); NEUTROPHILS # 5.5 10^3/uL (1.5-8.5); NEUTROPHILS % 61.6 % (36.0-66.0); PLATELET COUNT, AUTOMATED 381 10^3/uL (150-450); RED BLOOD COUNT 3.99 10^6/uL (4.00-5.40); WHITE BLOOD COUNT 8.9 10^3/uL (4.0-10.0)
[2020-01-17 17:11] LABS: ALBUMIN 3.6 GM/DL (3.2-5.2); ALT/SGPT 21 U/L (12-78); BILIRUBIN,DIRECT 0.1 MG/DL (0.0-0.2); BILIRUBIN,TOTAL 0.5 MG/DL (0.2-1.0); BLOOD UREA NITROGEN 9 MG/DL (7-18); CARBON DIOXIDE LEVEL 27 MEQ/L (21-32); CHLORIDE LEVEL 107 MEQ/L (98-107); CREATININE FOR GFR 0.81 MG/DL (0.55-1.30); GLOMERULAR FILTRATION RATE > 60.0 (>58); GLUCOSE, FASTING 78 MG/DL (70-100); LIPASE 59 U/L (73-393); POTASSIUM SERUM 3.8 MEQ/L (3.5-5.1); SODIUM LEVEL 141 MEQ/L (136-145); TOTAL PROTEIN 6.8 GM/DL (6.4-8.2)
--- NOTE | 2020-01-17 17:36 | REPVR ---
PROCEDURE INFORMATION: Exam: CT Abdomen And Pelvis Without Contrast Exam date and time: 01/17/2020 5:21 PM Age: 44 years old Clinical indication: Other: L flank pain, febrile concern for stone obst or pyelonephrit TECHNIQUE: Imaging protocol: Computed tomography of the abdomen and pelvis without contrast. Radiation optimization: All CT scans at this facility use at least one of these dose optimization techniques: automated exposure control; mA and/or kV adjustment per patient size (includes targeted exams where dose is matched to clinical indication); or iterative reconstruction. COMPARISON: CT ABD PELVIS W/O CONTRAST 06/17/2018 4:15 PM FINDINGS: Liver: Normal. No mass. Gallbladder and bile ducts: Normal. No calcified stones. No ductal dilation. Pancreas: Normal. No ductal dilation. Spleen: Normal. No splenomegaly. Adrenals: Normal. No mass. Kidneys and ureters: Punctate nonobstructive calculus lower pole right kidney. No obstructive ureteral calculi demonstrated. Stomach and bowel: Unremarkable. No obstruction. No mucosal thickening. Appendix: No evidence of appendicitis. Intraperitoneal space: Unremarkable. No free air. No significant fluid collection. Vasculature: Unremarkable. No abdominal aortic aneurysm. Lymph nodes: Unremarkable. No enlarged lymph nodes. Bladder: Unremarkable as visualized. Reproductive: Unremarkable as visualized. Bones/joints: Moderate central spinal stenosis L3-L4 moderate to severe central spinal stenosis L4-L5. There is a grade 1 anterior spondylolisthesis of L5 on S1 secondary to bilateral L5 spondylolysis. Soft tissues: Unremarkable. IMPRESSION: 1. Moderate central spinal stenosis L3-L4 moderate to severe central spinal stenosis L4-L5. There is a grade 1 anterior spondylolisthesis of L5 on S1 secondary to bilateral L5 spondylolysis. 2. Punctate nonobstructive calculus lower pole right kidney. No obstructive ureteral calculi demonstrated. Electronically signed by: Edwin Oshea On 01/17/2020 17:35:54 PM
[2020-01-17] MEDS ORDERED: CIPR-249 PO (17:41)
[2020-01-17 17:46] VITALS: BP 130/80
== END 2020-01-17 17:54 | disposition home or self-care (01) ==
LOC: M ED 13:12
DX: N10 Acute pyelonephritis (principal); N20.0 Calculus of kidney; M48.061 Spinal stenosis, lumbar region without neurogenic claudication; M43.17 Spondylolisthesis, lumbosacral region; Z88.1 Allergy status to other antibiotic agents; Z88.2 Allergy status to sulfonamides; Z88.8 Allergy status to other drugs, medicaments and biological substances; Z79.899 Other long term (current) drug therapy; Z79.84 Long term (current) use of oral hypoglycemic drugs
CPT/HCPCS: 36415; 74176; 80048; 80076; 81001; 83605; 83690; 85025; 87040; 87088; 87186; 96365; 99284; J0696; J2405

== ENCOUNTER → 2020-02-17 | Outpatient (REF) | payer BC ==
[~2020-02-17] MED LIST changes: +BUPR-69; +BUPR300T92; +CIPR-249 PO; +METF-838; +VYVA60CA; +tylenol 1 gm
== END ==
LOC: M SMT 16:48
PROVIDERS: ATTEND Urology
DX: N39.0 Urinary tract infection, site not specified (principal); N20.0 Calculus of kidney; R35.0 Frequency of micturition; R39.82 Chronic bladder pain

== ENCOUNTER → 2020-03-14 | Outpatient (REF) | payer BC | LOC: M SMT 12:45 | PROVIDERS: ATTEND Urology | DX: N39.0 Urinary tract infection, site not specified (principal) ==

== ENCOUNTER 2020-06-08 10:48 | Emergency (ER) | payer BC ==
[~2020-06-08] VITALS: Ht 165.1 cm; Wt 80.1 kg
[2020-06-08 12:26] LABS: HEMATOCRIT 40.3 % (36.0-47.0); HEMOGLOBIN 12.8 g/dl (12.0-15.5); MEAN CORPUSCULAR HEMOGLOBIN 30.5 pg (27.0-33.0); MEAN CORPUSCULAR HGB CONC 31.8 g/dl (32.0-36.5); PLATELET COUNT, AUTOMATED 352 10^3/uL (150-450); WHITE BLOOD COUNT 8.3 10^3/uL (4.0-10.0)
[2020-06-08] MEDS ORDERED: NS 1,000 ML IV ONE (12:45)
[2020-06-08] MEDS ORDERED: ONDANSETRON 4MG/2ML VIAL IV ONE (12:45)
[2020-06-08 13:09] LABS: ALBUMIN 3.9 GM/DL (3.2-5.2); BILIRUBIN,DIRECT 0.2 MG/DL (0.0-0.2); BILIRUBIN,TOTAL 0.6 MG/DL (0.2-1.0); TOTAL PROTEIN 7.3 GM/DL (6.4-8.2)
--- NOTE | 2020-06-08 13:18 | REP ---
INDICATION: R flank pain, hematuria, h/o kidney stones COMPARISON: Comparison CT study January 17, 2020.. TECHNIQUE: Helical scanning is acquired in 4 mm axial images were reformatted. Coronal and sagittal MPR images were generated and reviewed. FINDINGS: Digital preliminary clinical pharmacologist radiograph is unremarkable. On axial CT images, the lung bases are clear. There is no evidence of pleural effusion or upper abdominal ascites. Liver and the spleen are normal in size homogeneous in texture. No abnormality is noted in the gallbladder or the pancreas. Normal adrenal glands are seen bilaterally. There is no evidence of intrarenal calculus or hydronephrosis on either side. No retroperitoneal mass or adenopathy is observed. A normal appendix is seen posterior to the cecum. The uterus is retroverted retroflexed. No ovarian mass or cyst is seen. Urinary bladder is unremarkable. On bone window settings, there is degenerative disc disease and osteoarthritic facet disease bilaterally at L5-S1. A degenerative grade 1 spondylolisthesis is seen at L5-S1 measuring 10 mm. This is unchanged. No bony destructive lesion is seen. No abdominal wall defect is observed. IMPRESSION: No urinary tract calculus or hydronephrosis seen. Normal appendix. No acute abdominal or pelvic abnormality. <Electronically signed by Terrence Fernandez > 06/08/20 [id number]
[2020-06-08] MEDS ORDERED: LEVO500T3 PO (13:56)
[2020-06-08 14:05] VITALS: BP 126/74
== END 2020-06-08 14:15 | disposition home or self-care (01) ==
LOC: M ED 10:48
DX: N39.0 Urinary tract infection, site not specified (principal); F41.9 Anxiety disorder, unspecified; Z88.1 Allergy status to other antibiotic agents; Z88.6 Allergy status to analgesic agent; Z88.8 Allergy status to other drugs, medicaments and biological substances; Z79.899 Other long term (current) drug therapy
CPT/HCPCS: 74176; 80047; 80076; 81001; 82150; 83690; 84702; 85027; 87088; 87186; 96361; 96374; 99284; J2405

== ENCOUNTER → 2021-03-02 | Outpatient (REF) | payer BC | LOC: M WUC 15:36 | PROVIDERS: ATTEND Physician Assistant | DX: R30.0 Dysuria (principal) ==

== ENCOUNTER → 2021-04-20 | Outpatient (CLI) | payer BC ==
[~2021-04-20] MED LIST changes: -LEVO500T3 PO; +LEVO500T4 PO
== END ==
LOC: M LABSMTC 13:23
PROVIDERS: ATTEND Pediatrics
DX: Z20.822 Contact with and (suspected) exposure to COVID-19 (principal)
CPT/HCPCS: C9803; U0003

== ENCOUNTER → 2022-01-10 | Outpatient (CLI) | payer BC ==
[~2022-01-10] MED LIST changes: +LEVO1TAB39 PO; -LEVO500T4 PO
== END ==
LOC: M WUC 09:13
PROVIDERS: ATTEND Physician Assistant
DX: S63.502A Unspecified sprain of left wrist, initial encounter (principal); M79.642 Pain in left hand; X58.XXXA Exposure to other specified factors, initial encounter; Y92.9 Unspecified place or not applicable

== ENCOUNTER 2022-07-04 09:45 | Inpatient (IN) | payer BC ==
[~2022-07-04] VITALS: Ht 165.1 cm; Wt 83.6 kg
[~2022-07-04 09:45] MED LIST changes: -BUPR-69; +BUPR-69 PO; -BUPR300T92; +BUPR300T92 PO; -METF-838; +METF-838 PO; -VYVA60CA; +VYVA60CA PO
[2022-07-04] MEDS ORDERED: GABA-1171 (11:20)
[2022-07-04] MEDS ORDERED: ONDA8TAB8 SL (11:20)
[2022-07-04] MEDS ORDERED: BIOT10009 PO (11:21)
[2022-07-04] MEDS ORDERED: LORazepam 2 MG TAB PO PRN (12:15)
[2022-07-04] MEDS ORDERED: LORazepam 2 MG/ML 1ML VIAL IV STA (12:20)
[2022-07-04 12:24] LABS: HEMATOCRIT 42.3 % (36.0-47.0); HEMOGLOBIN 13.8 g/dl (12.0-15.5); MEAN CORPUSCULAR HEMOGLOBIN 31.1 pg (27.0-33.0); MEAN CORPUSCULAR HGB CONC 32.6 g/dl (32.0-36.5); MEAN CORPUSCULAR VOLUME 95.3 fl (80.0-96.0); PLATELET COUNT, AUTOMATED 465 10^3/uL (150-450); RED BLOOD COUNT 4.44 10^6/uL (4.00-5.40); WHITE BLOOD COUNT 9.4 10^3/uL (4.0-10.0)
[2022-07-04] MEDS: THIAMINE 100 MG TAB PO SCH ×2 (12:27→19:58)
[2022-07-04] MEDS: MULTIVITAMINS/MINERALS THERAP 1 TAB PO SCH (12:27)
[2022-07-04 12:53] LABS: AMPHETAMINES LEVEL URINE NEGATIVE (NEGATIVE); BARBITURATES URINE NEGATIVE (NEGATIVE); BENZODIAZEPINES URINE NEGATIVE (NEGATIVE); CANNABINOIDS URINE NEGATIVE (NEGATIVE); COCAINE METABOLITE URINE NEGATIVE (NEGATIVE); ETHYL ALCOHOL (ETHANOL) 0.005 % (0.000-0.010); METHADONE URINE NEGATIVE (NEGATIVE); OPIATES URINE NEGATIVE (NEGATIVE); PHENCYCLIDINE URINE NEGATIVE (NEGATIVE)
[2022-07-04 12:55] LABS: ACETAMINOPHEN LEVEL < 2.0 UG/ML (10.0-20.0); SALICYLATE LEVEL < 3.0 MG/DL (<30)
[2022-07-04 13:02] LABS: ALBUMIN 3.9 G/DL (3.2-5.2); ALKALINE PHOSPHATASE 86 U/L (46-116); ALT/SGPT 23 U/L (7.0-40); AST/SGOT 18 U/L (<34); BILIRUBIN,DIRECT 0.2 MG/DL (<0.4); BILIRUBIN,TOTAL 0.8 MG/DL (0.3-1.2); BLOOD UREA NITROGEN 12 MG/DL (9-23); CALCIUM LEVEL 9.6 MG/DL (8.5-10.1); CARBON DIOXIDE LEVEL 26 MMOL/L (20-31); CHLORIDE LEVEL 102 MMOL/L (98-107); CREATININE FOR GFR 0.95 MG/DL (0.55-1.30); GLOMERULAR FILTRATION RATE > 60.0 (>58); GLUCOSE, FASTING 84 MG/DL (60-100); MAGNESIUM LEVEL 1.8 MG/DL (1.8-2.4); SODIUM LEVEL 137 MMOL/L (136-145); TOTAL PROTEIN 7.4 G/DL (5.7-8.2)
[2022-07-04 13:58] LABS: HCG, SERUM QUALITATIVE NEGATIVE (NEGATIVE)
[2022-07-04] MEDS ORDERED: ACETAMINOPHEN TAB 650MG DOSE (2X325MG) PO ONE (14:50)
[2022-07-04] MEDS: PHENobarbitaL 30 MG TAB PO SCH ×2 (16:30→19:58)
[2022-07-04] MEDS ORDERED: BIOT1TAB6 PO (16:31)
[2022-07-04] MEDS ORDERED: IBUP-1022 PO (16:31)
[2022-07-04] MEDS ORDERED: VYVA20CA PO (16:31)
[2022-07-04] MEDS ORDERED: IBUPROFEN 600MG TAB PO PRN (16:35)
[2022-07-04] MEDS ORDERED: HOME MED LIST COMPLETE! XX SCH (16:35)
[2022-07-04 17:05] VITALS: BP 170/60
[2022-07-04] MEDS: GABAPENTIN 300 MG CAP PO SCH ×2 (17:52→19:58)
[2022-07-04 20:00] VITALS: BP 149/88
[2022-07-04] MEDS: metFORMIN XR 500MG TAB *GLUCOPHAGE XR PO SCH (22:19)
[2022-07-04] MEDS ORDERED: RAMELTEON 8 MG TAB (ROZEREM) PO ONE (22:20)
[2022-07-05] VITALS: BP 129/80
[2022-07-05 04:30] VITALS: BP 118/83
[2022-07-05 05:34] LABS: HEMATOCRIT 37.7 % (36.0-47.0); HEMOGLOBIN 11.9 g/dl (12.0-15.5); MEAN CORPUSCULAR HEMOGLOBIN 30.6 pg (27.0-33.0); MEAN CORPUSCULAR HGB CONC 31.6 g/dl (32.0-36.5); MEAN CORPUSCULAR VOLUME 96.9 fl (80.0-96.0); PLATELET COUNT, AUTOMATED 382 10^3/uL (150-450); RED BLOOD COUNT 3.89 10^6/uL (4.00-5.40); WHITE BLOOD COUNT 6.7 10^3/uL (4.0-10.0)
[2022-07-05 06:18] LABS: BLOOD UREA NITROGEN 14 MG/DL (9-23); CALCIUM LEVEL 8.4 MG/DL (8.5-10.1); CARBON DIOXIDE LEVEL 28 MMOL/L (20-31); CHLORIDE LEVEL 106 MMOL/L (98-107); CREATININE FOR GFR 0.83 MG/DL (0.55-1.30); GLOMERULAR FILTRATION RATE > 60.0 (>58); GLUCOSE, FASTING 94 MG/DL (60-100); POTASSIUM SERUM 4.3 MMOL/L (3.5-5.1); SODIUM LEVEL 139 MMOL/L (136-145)
[2022-07-05 08:55] VITALS: BP 113/60
[2022-07-05] MEDS ORDERED: ENTER DRUG NAME HERE (PATIENT'S OWN MED) PO SCH (09:00)
[2022-07-05] MEDS ORDERED: buPROPion 100 MG TAB PO SCH (09:00)
[2022-07-05] MEDS: metFORMIN XR 500MG TAB *GLUCOPHAGE XR PO SCH ×2 (09:37→22:32)
[2022-07-05] MEDS: ENOXAPARIN 40MG/0.4ML SYRINGE (J1650 PER 10MG) SC SCH (09:37)
[2022-07-05] MEDS: FOLIC ACID 1MG TAB PO SCH (09:38)
[2022-07-05] MEDS: buPROPion **XL** TABLET 150MG (WELLBUTRIN XL) PO SCH (09:38)
[2022-07-05] MEDS: PHENobarbitaL 30 MG TAB PO SCH ×3 (09:38→21:00)
[2022-07-05] MEDS: GABAPENTIN 300 MG CAP PO SCH ×3 (09:38→22:32)
[2022-07-05] MEDS: MULTIVITAMINS/MINERALS THERAP 1 TAB PO SCH (09:39)
[2022-07-05] MEDS: THIAMINE 100 MG TAB PO SCH ×2 (09:39→22:32)
[2022-07-05] MEDS ORDERED: PHENobarbitaL 30 MG TAB PO ONE (11:00)
[2022-07-05] MEDS: NALTREXONE 50 MG TAB PO SCH (16:05)
[2022-07-05] MEDS: ESCITALOPRAM OXALATE 10 MG TAB (LEXAPRO) PO SCH (16:05)
[2022-07-05 16:42] VITALS: BP 124/71
[2022-07-05 20:00] VITALS: BP 115/62
[2022-07-06 03:57] VITALS: BP 119/60
[2022-07-06 07:46] VITALS: BP 119/70
[2022-07-06] MEDS: GABAPENTIN 300 MG CAP PO SCH (08:28)
[2022-07-06] MEDS: THIAMINE 100 MG TAB PO SCH (08:29)
[2022-07-06] MEDS: buPROPion **XL** TABLET 150MG (WELLBUTRIN XL) PO SCH (08:29)
[2022-07-06] MEDS: MULTIVITAMINS/MINERALS THERAP 1 TAB PO SCH (08:29)
[2022-07-06] MEDS: FOLIC ACID 1MG TAB PO SCH (08:29)
[2022-07-06] MEDS: ESCITALOPRAM OXALATE 10 MG TAB (LEXAPRO) PO SCH (08:29)
[2022-07-06] MEDS: NALTREXONE 50 MG TAB PO SCH (08:29)
[2022-07-06] MEDS: metFORMIN XR 500MG TAB *GLUCOPHAGE XR PO SCH (08:29)
[2022-07-06] MEDS: PHENobarbitaL 30 MG TAB PO SCH (08:29)
[2022-07-06] MEDS: ENOXAPARIN 40MG/0.4ML SYRINGE (J1650 PER 10MG) SC SCH (08:30)
[2022-07-06] MEDS ORDERED: LEXA1TAB PO (08:55)
[2022-07-06] MEDS ORDERED: THIA100TA PO (08:56)
[2022-07-06] MEDS ORDERED: VITMTA PO (08:56)
[2022-07-06] MEDS ORDERED: GABA-282 PO (08:56)
[2022-07-06] MEDS ORDERED: NALT50TA4 PO (08:56)
[2022-07-06] MEDS ORDERED: FOLI1TAB11 PO (08:56)
[2022-07-06] MEDS ORDERED: PHENobarbitaL 30 MG TAB PO SCH (16:00)
== END 2022-07-06 12:35 | disposition home or self-care (01) | DRG 775 ==
LOC: M ED 09:45 → M ED INP 15:20 → ENRESERV 15:34 → M PCU 16:50
PROVIDERS: ADMIT Student in an Organized Health Care Education/Training Program; ATTEND Student in an Organized Health Care Education/Training Program
DX: F10.932 Alcohol use, unspecified with withdrawal with perceptual disturbance (principal); R45.851 Suicidal ideations; F50.81 Binge eating disorder; F32.A Depression, unspecified; F41.9 Anxiety disorder, unspecified; E28.2 Polycystic ovarian syndrome; Z88.5 Allergy status to narcotic agent; Z88.2 Allergy status to sulfonamides; Z88.8 Allergy status to other drugs, medicaments and biological substances; Z79.899 Other long term (current) drug therapy; Z91.410 Personal history of adult physical and sexual abuse; F60.7 Dependent personality disorder

== ENCOUNTER 2022-07-10 15:54 | Inpatient (IN) | payer BC ==
[~2022-07-10] VITALS: Ht 165.1 cm; Wt 85.7 kg
[~2022-07-10 15:54] MED LIST changes: +BIOT10009 PO; +BIOT1TAB6 PO; +FOLI1TAB11 PO; +GABA-1171; +GABA-282 PO; +LEXA1TAB PO; +NALT50TA4 PO; +ONDA8TAB8 SL; +THIA100TA PO; +VITMTA PO; +VYVA20CA PO
[2022-07-10] MEDS ORDERED: LORA1TAB4 PO (16:06)
[2022-07-10] MEDS ORDERED: TRAZ-257 PO (16:06)
[2022-07-10] MEDS ORDERED: ACAM0.05 PO (16:06)
[2022-07-10] MEDS ORDERED: VALA1TAB5 PO (16:06)
[2022-07-10] MEDS ORDERED: LORazepam 2 MG/ML 1ML VIAL IV STA (17:02)
[2022-07-10] MEDS ORDERED: MECLIZINE 25 MG TABLET PO ONE (17:10)
[2022-07-10 17:31] LABS: BASO # 0.1 10^3/uL (0.0-0.2); BASO % 0.8 % (0.0-1.0); EOS # 0.2 10^3/uL (0.0-0.5); EOS % 3.1 % (0.0-3.0); HEMATOCRIT 36.8 % (36.0-47.0); HEMOGLOBIN 11.8 g/dl (12.0-15.5); LYMPH # 1.7 10^3/uL (1.5-5.0); LYMPH % 27.5 % (24.0-44.0); MEAN CORPUSCULAR HEMOGLOBIN 31.5 pg (27.0-33.0); MEAN CORPUSCULAR HGB CONC 32.1 g/dl (32.0-36.5); MEAN CORPUSCULAR VOLUME 98.1 fl (80.0-96.0); MONO # 0.6 10^3/uL (0.0-0.8); NEUTROPHILS # 3.7 10^3/uL (1.5-8.5); NEUTROPHILS % 59.3 % (36.0-66.0); RED BLOOD COUNT 3.75 10^6/uL (4.00-5.40); WHITE BLOOD COUNT 6.2 10^3/uL (4.0-10.0)
[2022-07-10 17:52] LABS: ETHYL ALCOHOL (ETHANOL) < 0.003 % (0.000-0.010)
[2022-07-10 17:54] LABS: ALBUMIN 3.3 G/DL (3.2-5.2); ALKALINE PHOSPHATASE 74 U/L (46-116); ALT/SGPT 19 U/L (7.0-40); AST/SGOT 14 U/L (<34); BILIRUBIN,DIRECT 0.1 MG/DL (<0.4); BILIRUBIN,TOTAL 0.3 MG/DL (0.3-1.2); BLOOD UREA NITROGEN 13 MG/DL (9-23); CALCIUM LEVEL 8.9 MG/DL (8.5-10.1); CARBON DIOXIDE LEVEL 31 MMOL/L (20-31); CHLORIDE LEVEL 104 MMOL/L (98-107); GLOMERULAR FILTRATION RATE > 60.0 (>58); GLUCOSE, FASTING 81 MG/DL (60-100); SODIUM LEVEL 141 MMOL/L (136-145); TOTAL PROTEIN 6.3 G/DL (5.7-8.2)
[2022-07-10 17:55] LABS: THYROID STIMULATING HORMONE 2.536 uIU/ML (0.55-4.78)
[2022-07-10 18:11] LABS: OSMOLALITY SERUM 292 MOSM/KG (275-295)
[2022-07-10 20:48] LABS: BENZODIAZEPINES URINE NEGATIVE (NEGATIVE)
[2022-07-10 20:49] LABS: CANNABINOIDS URINE NEGATIVE (NEGATIVE); COCAINE METABOLITE URINE NEGATIVE (NEGATIVE); METHADONE URINE NEGATIVE (NEGATIVE); PHENCYCLIDINE URINE NEGATIVE (NEGATIVE)
[2022-07-10 21:13] LABS: AMPHETAMINES LEVEL URINE POSITIVE (NEGATIVE); BARBITURATES URINE POSITIVE (NEGATIVE)
[2022-07-10 21:22] LABS: OPIATES URINE NEGATIVE (NEGATIVE)
[2022-07-10 22:34] LABS: ACETAMINOPHEN LEVEL < 2.0 UG/ML (10.0-20.0); SALICYLATE LEVEL < 3.0 MG/DL (<30)
[2022-07-11] MEDS ORDERED: LEXA1TAB PO (06:35)
[2022-07-11] MEDS ORDERED: B-1100TA2 PO (06:35)
[2022-07-11] MEDS ORDERED: TRAZ-186 PO (06:35)
[2022-07-11] MEDS ORDERED: VITMTA PO (06:35)
[2022-07-11] MEDS ORDERED: FOLI1TAB11 PO (06:35)
[2022-07-11] MEDS ORDERED: NALT50TA4 PO (06:35)
[2022-07-11] MEDS ORDERED: HOME MED LIST COMPLETE! XX SCH (06:35)
[2022-07-11] MEDS ORDERED: LORA1TAB4 PO (06:35)
[2022-07-11] MEDS ORDERED: BIOT10TA2 PO (06:35)
[2022-07-11] MEDS ORDERED: GABA-282 PO (06:35)
[2022-07-11] MEDS ORDERED: buPROPion **XL** TABLET 150MG (WELLBUTRIN XL) PO ONE (10:05)
[2022-07-11] MEDS ORDERED: GABAPENTIN 300 MG CAP PO ONE (10:05)
[2022-07-11] MEDS ORDERED: FOLIC ACID 1MG TAB PO ONE (10:05)
[2022-07-11] MEDS ORDERED: ACAMPROSATE CALCIUM 333MG TABLET (CAMPRAL) PO ONE (10:05)
[2022-07-11] MEDS ORDERED: MULTIVITAMINS/MINERALS THERAP 1 TAB PO ONE (10:05)
[2022-07-11] MEDS ORDERED: metFORMIN (GLUCOPHAGE) 500MG TAB PO ONE (10:05)
[2022-07-11] MEDS ORDERED: ESCITALOPRAM OXALATE 10 MG TAB (LEXAPRO) PO ONE (10:05)
[2022-07-11] MEDS ORDERED: THIAMINE 100 MG TAB PO ONE (10:05)
[2022-07-11] MEDS ORDERED: LORazepam 1 MG TAB PO ONE (10:05)
[2022-07-11] MEDS ORDERED: MAALOX 30 ML SUSP *UDC PO PRN (16:10)
[2022-07-11] MEDS ORDERED: MOM 30ML SUSPENSION UDC PO PRN (16:10)
[2022-07-11] MEDS ORDERED: ONDANSETRON 4MG ORAL DISINTEGRATING TAB SL PRN (16:10)
[2022-07-11] MEDS ORDERED: LORazepam 2 MG TAB PO PRN (16:10)
[2022-07-11] MEDS ORDERED: IBUPROFEN 400MG TAB PO PRN (16:10)
[2022-07-11] MEDS ORDERED: diphenhydrAMINE 25MG CAP PO PRN (16:10)
[2022-07-11 18:15] VITALS: BP 115/66
[2022-07-11] MEDS: ACAMPROSATE CALCIUM 333MG TABLET (CAMPRAL) PO SCH (20:43)
[2022-07-11] MEDS: metFORMIN XR 500MG TAB *GLUCOPHAGE XR PO SCH (20:43)
[2022-07-11] MEDS: THIAMINE 100 MG TAB PO SCH (20:43)
[2022-07-11] MEDS ORDERED: NALTREXONE 50 MG TAB PO SCH (21:00)
[2022-07-11 23:50] VITALS: BP 0/0
[2022-07-12 06:40] VITALS: BP 112/64
[2022-07-12 06:41] VITALS: BP 112/64
[2022-07-12] MEDS: metFORMIN XR 500MG TAB *GLUCOPHAGE XR PO SCH (08:31)
[2022-07-12] MEDS: THIAMINE 100 MG TAB PO SCH (08:31)
[2022-07-12] MEDS: ACAMPROSATE CALCIUM 333MG TABLET (CAMPRAL) PO SCH (08:31)
[2022-07-12] MEDS ORDERED: LORazepam 1 MG TAB PO ONE (09:00)
[2022-07-12] MEDS ORDERED: FOLIC ACID 1MG TAB PO SCH ×2 (09:00)
[2022-07-12] MEDS ORDERED: NICOTINE 21MG/24HR 1 EA TRANSDERMAL TD SCH (09:00)
[2022-07-12] MEDS ORDERED: MULTIVITAMINS/MINERALS THERAP 1 TAB PO SCH ×2 (09:00)
[2022-07-12] MEDS ORDERED: ESCITALOPRAM OXALATE 10 MG TAB (LEXAPRO) PO SCH (09:00)
[2022-07-12] MEDS ORDERED: ATIV1TAB10 PO (09:09)
[2022-07-12] MEDS ORDERED: TRAZ-186 PO (09:09)
[2022-07-15] MEDS ORDERED: THIAMINE 100 MG TAB PO SCH (09:00)
== END 2022-07-12 13:34 | disposition home or self-care (01) | DRG 754 ==
LOC: M ED 15:54 → M ED INP 07-11 16:08 → M PSY 07-11 18:11
PROVIDERS: ADMIT Psychiatry & Neurology Psychiatry; ATTEND Psychiatry & Neurology Psychiatry
DX: F32.A Depression, unspecified (principal); F41.9 Anxiety disorder, unspecified; F10.90 Alcohol use, unspecified, uncomplicated; Z20.822 Contact with and (suspected) exposure to COVID-19; Z91.51 Personal history of suicidal behavior; Z81.1 Family history of alcohol abuse and dependence; Z79.84 Long term (current) use of oral hypoglycemic drugs; Z79.899 Other long term (current) drug therapy; Z88.1 Allergy status to other antibiotic agents; Z88.5 Allergy status to narcotic agent; Z88.2 Allergy status to sulfonamides; Z88.8 Allergy status to other drugs, medicaments and biological substances; F50.81 Binge eating disorder; E28.2 Polycystic ovarian syndrome

== ENCOUNTER 2022-07-29 18:17 | Emergency (ER) | payer BC ==
[~2022-07-29] VITALS: Ht 165.1 cm; Wt 83.9 kg
[~2022-07-29 18:17] MED LIST changes: +ACAM0.05 PO; +ATIV1TAB10 PO; +B-1100TA2 PO; +BIOT10TA2 PO; +LORA1TAB4 PO; +TRAZ-186 PO; +TRAZ-257 PO; +VALA1TAB5 PO
[2022-07-29] MEDS ORDERED: LORazepam 0.5 MG TAB PO STA (20:33)
[2022-07-29 20:34] VITALS: BP 136/96
[2022-07-29] MEDS ORDERED: GABAPENTIN 300 MG CAP PO ONE (20:35)
[2022-07-29 20:42] LABS: HEMATOCRIT 39.8 % (36.0-47.0); HEMOGLOBIN 12.8 g/dl (12.0-15.5); MEAN CORPUSCULAR HEMOGLOBIN 30.7 pg (27.0-33.0); MEAN CORPUSCULAR HGB CONC 32.2 g/dl (32.0-36.5); MEAN CORPUSCULAR VOLUME 95.4 fl (80.0-96.0); PLATELET COUNT, AUTOMATED 349 10^3/uL (150-450); RED BLOOD COUNT 4.17 10^6/uL (4.00-5.40); WHITE BLOOD COUNT 10.1 10^3/uL (4.0-10.0)
[2022-07-29 21:00] LABS: AMPHETAMINES LEVEL URINE NEGATIVE (NEGATIVE); BARBITURATES URINE NEGATIVE (NEGATIVE); BENZODIAZEPINES URINE NEGATIVE (NEGATIVE); COCAINE METABOLITE URINE NEGATIVE (NEGATIVE)
[2022-07-29 21:01] LABS: CANNABINOIDS URINE NEGATIVE (NEGATIVE); METHADONE URINE NEGATIVE (NEGATIVE); OPIATES URINE NEGATIVE (NEGATIVE); PHENCYCLIDINE URINE NEGATIVE (NEGATIVE)
[2022-07-29 21:19] LABS: ETHYL ALCOHOL (ETHANOL) < 0.003 % (0.000-0.010)
[2022-07-29 21:20] LABS: ACETAMINOPHEN LEVEL < 2.0 UG/ML (10.0-20.0); SALICYLATE LEVEL < 3.0 MG/DL (<30)
[2022-07-29 21:21] LABS: ALBUMIN 3.6 G/DL (3.2-5.2); ALKALINE PHOSPHATASE 81 U/L (46-116); ALT/SGPT 16 U/L (7.0-40); AST/SGOT 14 U/L (<34); BILIRUBIN,DIRECT 0.2 MG/DL (<0.4); BILIRUBIN,TOTAL 0.5 MG/DL (0.3-1.2); BLOOD UREA NITROGEN 12 MG/DL (9-23); CALCIUM LEVEL 8.9 MG/DL (8.5-10.1); CARBON DIOXIDE LEVEL 29 MMOL/L (20-31); CHLORIDE LEVEL 104 MMOL/L (98-107); CREATININE FOR GFR 0.67 MG/DL (0.55-1.30); GLOMERULAR FILTRATION RATE > 60.0 (>58); GLUCOSE, FASTING 101 MG/DL (60-100); POTASSIUM SERUM 3.8 MMOL/L (3.5-5.1); SODIUM LEVEL 140 MMOL/L (136-145); TOTAL PROTEIN 6.8 G/DL (5.7-8.2)
[2022-07-29 21:22] LABS: THYROID STIMULATING HORMONE 2.523 uIU/ML (0.55-4.78)
[2022-07-29 21:23] LABS: HCG, SERUM QUALITATIVE NEGATIVE (NEGATIVE)
== END 2022-07-29 23:55 | disposition home or self-care (01) ==
LOC: M ED 18:17
DX: R45.88 Nonsuicidal self-harm (principal); F10.10 Alcohol abuse, uncomplicated; Z88.1 Allergy status to other antibiotic agents; Z88.5 Allergy status to narcotic agent; Z88.8 Allergy status to other drugs, medicaments and biological substances; Z79.891 Long term (current) use of opiate analgesic; Z79.4 Long term (current) use of insulin; Z79.899 Other long term (current) drug therapy

== ENCOUNTER → 2022-08-26 | Outpatient (CLI) | payer BC ==
[2022-08-26 15:56] LABS: HEMATOCRIT 39.5 % (36.0-47.0); HEMOGLOBIN 12.4 g/dl (12.0-15.5); MEAN CORPUSCULAR HEMOGLOBIN 30.2 pg (27.0-33.0); MEAN CORPUSCULAR HGB CONC 31.4 g/dl (32.0-36.5); MEAN CORPUSCULAR VOLUME 96.1 fl (80.0-96.0); PLATELET COUNT, AUTOMATED 320 10^3/uL (150-450); RED BLOOD COUNT 4.11 10^6/uL (4.00-5.40); WHITE BLOOD COUNT 6.8 10^3/uL (4.0-10.0)
[2022-08-26 16:24] LABS: C REACTIVE PROTEIN QUANTITATIV < 0.40 MG/DL (<1.0); MAU/CREAT RATIO 2.8 MCG/MG (0.0-30.0)
[2022-08-26 16:25] LABS: IRON (FE) 45 UG/DL (50-170); PERCENT SATURATION 14.1 % (13.2-45.0); TOTAL IRON BINDING CAPACITY 320 UG/DL (250-425)
[2022-08-26 16:26] LABS: ALBUMIN 3.7 G/DL (3.2-5.2); ALKALINE PHOSPHATASE 76 U/L (46-116); ALT/SGPT 16 U/L (7.0-40); AST/SGOT 16 U/L (<34); BILIRUBIN,TOTAL 0.6 MG/DL (0.3-1.2); BLOOD UREA NITROGEN 13 MG/DL (9-23); CARBON DIOXIDE LEVEL 29 MMOL/L (20-31); CHLORIDE LEVEL 108 MMOL/L (98-107); CHOLESTEROL LEVEL 154 MG/DL (<200); CHOLESTEROL RISK RATIO 2.03 (<5); CREATININE FOR GFR 0.72 MG/DL (0.55-1.30); GLOMERULAR FILTRATION RATE > 60.0 (>58); GLUCOSE, FASTING 81 MG/DL (60-100); HDL CHOLESTEROL 75.6 MG/DL (>40); LDL CHOLESTEROL 69.4 MG/DL (<100); NON-HDL-C 78.4 MG/DL; POTASSIUM SERUM 4.7 MMOL/L (3.5-5.1); SODIUM LEVEL 140 MMOL/L (136-145); TOTAL PROTEIN 6.9 G/DL (5.7-8.2); TRIGLYCERIDES LEVEL 45 MG/DL (<150)
[2022-08-26 16:27] LABS: FREE T4 0.93 NG/DL (0.89-1.76); THYROID STIMULATING HORMONE 1.733 uIU/ML (0.55-4.78); TOTAL 25(OH) VITAMIN D 41.6 NG/ML (20.0-100.0); VITAMIN B12 LEVEL 854 PG/ML (211-911)
== END ==
LOC: M PLALAB 13:48
PROVIDERS: ATTEND Internal Medicine Hematology
DX: M79.672 Pain in left foot (principal); M10.9 Gout, unspecified

== ENCOUNTER → 2023-06-25 | Outpatient (REF) ==
[~2023-06-25] MED LIST changes: +LORA1TAB23 PO; -LORA1TAB4 PO; -OXYB5TAB10 PO; +OXYB5TAB14 PO
== END ==
LOC: M EMP 08:28
PROVIDERS: ATTEND Family Medicine
DX: Z11.52 Encounter for screening for COVID-19 (principal)

== ENCOUNTER 2023-10-08 07:49 | Emergency (ER) | payer BC ==
[~2023-10-08] VITALS: Ht 167.6 cm; Wt 78.0 kg
[~2023-10-08 07:49] MED LIST changes: +BUPR-597 PO; -BUPR300T92 PO; +ONDA-284 SL; -ONDA8TAB8 SL
[2023-10-08] MEDS ORDERED: BUPR150T12 PO (08:03)
[2023-10-08 10:13] VITALS: BP 160/88; TEMP 98.1; O2SAT 100
[2023-10-08] MEDS: IBUPROFEN 600MG TAB PO ONE (10:55)
== END 2023-10-08 11:03 | disposition home or self-care (01) ==
LOC: M ED 07:49
DX: K02.9 Dental caries, unspecified (principal); K03.81 Cracked tooth; F10.10 Alcohol abuse, uncomplicated; F32.A Depression, unspecified; M54.50 Low back pain, unspecified; F41.9 Anxiety disorder, unspecified; Z88.1 Allergy status to other antibiotic agents; Z88.2 Allergy status to sulfonamides; Z88.5 Allergy status to narcotic agent; Z79.899 Other long term (current) drug therapy; Z87.442 Personal history of urinary calculi

== ENCOUNTER → 2023-10-22 | Outpatient (REF) | payer BC ==
[~2023-10-22] MED LIST changes: +BUPR150T12 PO
== END ==
LOC: M EMP 08:09
PROVIDERS: ATTEND Family Medicine
DX: Z11.52 Encounter for screening for COVID-19 (principal); U07.1 COVID-19

== ENCOUNTER 2024-06-25 16:01 | Emergency (ER) | payer BC ==
[~2024-06-25] VITALS: Ht 167.6 cm; Wt 84.7 kg
[~2024-06-25 16:01] MED LIST changes: +GABA-1172 PO; -GABA-282 PO
[2024-06-25] MEDS: LIDOCAINE 2% MDV 20ML VIAL SC ONE (20:20)
[2024-06-25] MEDS: BOOSTRIX VACCINE (TETANUS/DIPHTH/ACEL. PERTUSSIS) 0.5ML SYR IM.IMMUN ONE (21:13)
[2024-06-25 21:39] VITALS: BP 121/78; TEMP 98.1; O2SAT 99
== END 2024-06-25 21:42 | disposition home or self-care (01) ==
LOC: M ED 16:01
DX: S61.211A Laceration without foreign body of left index finger without damage to nail, initial encounter (principal); W23.2XXA Caught, crushed, jammed or pinched between a moving and stationary object, initial encounter; Z88.0 Allergy status to penicillin; Z88.2 Allergy status to sulfonamides; Z88.5 Allergy status to narcotic agent; Z23 Encounter for immunization; Z79.899 Other long term (current) drug therapy; Y92.009 Unspecified place in unspecified non-institutional (private) residence as the place of occurrence of the external cause; Y93.89 Activity, other specified; Y99.9 Unspecified external cause status

== ENCOUNTER → 2025-03-08 | Outpatient (CLI) | payer OTHER ==
[~2025-03-08] MED LIST changes: -BUPR-597 PO; +BUPR-766 PO; -FLOM0.4C39 PO; -IBUP-1022 PO; +IBUP600T42 PO; +TAMS-18 PO
== END ==
LOC: M WUC 15:35
PROVIDERS: ATTEND Student in an Organized Health Care Education/Training Program
DX: M25.571 Pain in right ankle and joints of right foot (principal)